=== PATIENT | male | born 1945 | race Caucasian/White ===

== ENCOUNTER 2019-01-17 13:00 | Inpatient (IN) | payer MEDICARE ==
--- NOTE | 2019-01-17 13:12 | ED ---
General Adult HPI - General Stated complaint: Chest Pain Time Seen by Provider: 01/17/19 13:00 Source: RN notes reviewed - History of Present Illness Initial comments: This is a 73-year-old male who was transferred to us from [facility]. According to the ER doctor at the other hospital the patient was having chest pain for a day him to their facility was concerned about some changes in precordial leads V1 and V2. Also the troponin was 0.026 according to the ER doc. According here Dr. Pretty spoke with Dr. Rodriguez and he was to be sent to our emergency department. I went and saw the patient he stated he had chest pain 1 day and he denies any difficulty breathing or diaphoretic episodes. Patient states he still has a little bit of chest pain. Patient denies any nausea vomiting. Patient denies any lightheadedness or dizziness. Patient denies headache patient denies numbness weakness. After I interviewed the patient I received a phone call almost immediately at the Cra Officer wanted the patient upstairs to cardiac catheterization. This point time we brought the patient upstairs. Review of Systems ROS Statement: Those systems with pertinent positive or pertinent negative responses have been documented in the HPI. ROS Other: All systems not noted in ROS Statement are negative. General Exam - General Exam Comments Initial Comments: GENERAL: Patient is well-developed and well-nourished. Patient is nontoxic and well- hydrated and is in no acute distress. ENT: Neck is soft and supple. No significant lymphadenopathy is noted. Erythematous. Moist mucous membranes. Neck has full range of motion without eliciting any pain. There is no thyroid enlargement and no masses were felt. EYES: The sclera were anicteric and conjunctiva were pink and moist. Extraocular movements were intact and pupils were equal round and reactive to light. Eyelids were unremarkable. PULMONARY: Unlabored respirations. Good breath sounds bilaterally. No audible rales rhonchi or wheezing was noted. CARDIOVASCULAR: There is a regular rate and rhythm without any murmurs gallops or rubs. ABDOMEN: Soft and nontender with normal bowel sounds. No palpable organomegaly was noted. There is no palpable pulsatile mass. SKIN: Skin is clear with no lesions or rashes and otherwise unremarkable. NEUROLOGIC: Patient is alert and oriented x3. Cranial nerves II through XII are grossly intact. Motor and sensory are also intact. Normal speech, volume and content. Symmetrical smile. MUSCULOSKELETAL: Normal extremities with adequate strength and full range of motion. LYMPHATICS: No significant lymphadenopathy is noted PSYCHIATRIC: Normal psychiatric evaluation. Medical Decision Making - Medical Decision Making EKG shows a normal sinus rhythm at 93 bpm IN interval 264 QRS is 98 QT interval 340 QTC is 432. Patient's EKG shows no ST segment elevation or depression. Patient was almost immediately transferred to the catheterization lab after I saw the patient. Disposition Clinical Impression: Chest pain Disposition: ADMITTED IP TO THIS HOSP Referrals: Juan Alonso MD [Primary Care Provider] - 1-2 days Time of Disposition: 13:12
[2019-01-17] MEDS ORDERED: IV FLUID CONTINUATION 1,000 ML IV ONE (13:27)
[2019-01-17] MEDS ORDERED: MIDAZOLAM (PF) 2 MG/2 ML VIAL IV ONE (13:45)
[2019-01-17] MEDS ORDERED: LIDOCAINE 1% INJ 10MG/ML (20 ML MDV) SQ ONE (13:48)
[2019-01-17] MEDS ORDERED: VERAPAMIL SYRINGE (5 MG/10 ML) INTRAARTER ONE ×2 (13:48→14:01)
[2019-01-17] MEDS ORDERED: IOPAMIDOL-370 125ML BTL INJ ONE (14:01)
[2019-01-17] MEDS ORDERED: RX INFO: IV CONTRAST WAS GIVEN 1 EACH MISC MISCELLANE PRN (14:16)
--- NOTE | 2019-01-17 14:25 | P.CRDCN ---
History of Present Illness Consult date: 01/17/19 Chief complaint: Chest discomfort History of present illness: This is a 73-year-old gentleman with no significant past medical history but prior history of smoking who [facility] complaining of chest discomfort for the last several weeks and presyncope earlier today. He felt dizzy and lightheaded and about to lose his consciousness. The initial EKG at [facility] revealed sinus rhythm with ST segment elevation in the anteroseptal leads. Because of that, and because of his symptoms, acute anterior ST patient myocardial infarction was suspected and the patient was brought to the emergency room at [facility] and then emergently to the cardiac pit laborer. He underwent a heart catheterization which revealed normal coronaries with normal left ventricular end-diastolic pressure. Currently the patient is chest pain-free. He denies any shortness of breath. Denies any feeling of heart racing or fluttering. The patient will be admitted to the general medical floor. An echocardiogram will be ordered. On physical examination he does have a systolic murmur at the right upper sternal border. Past Medical History Past Medical History: Chest Pain / Angina History of Any Multi-Drug Resistant Organisms: None Reported Past Surgical History: Unable to Obtain Past Psychological History: No Psychological Hx Reported Smoking Status: Former smoker Past Alcohol Use History: None Reported Past Drug Use History: None Reported Medications and Allergies Allergies Allergy/AdvReac Type Severity Reaction Status Date / Time No Known Allergies Allergy Verified 01/17/19 13:37 Physical Exam Vitals: Vital Signs Temp Pulse Resp BP Pulse Ox 01/17/19 13:07 98.5 F 95 16 126/79 98 Intake and Output 01/16/19 01/17/19 01/17/19 22:59 06:59 14:59 Intake Total 50 Balance 50 Intake: IV 50 Other: Weight 99.337 kg - Constitutional General appearance: no acute distress - Respiratory Respiratory: bilateral: rales - Cardiovascular Rhythm: regular Heart sounds: normal: S1, S2 Abnormal Heart Sounds: systolic murmur Results Current Medications Generic Name Dose Route Start Last Admin Trade Name Freq PRN Reason Stop Dose Admin Sodium Chloride 1,000 mls @ 75 mls/hr 01/17/19 14:30 Saline 0.9% IV 01/17/19 19:31 .[id number] MAHENDRA Miscellaneous Information 1 each 01/17/19 14:16 Rx Info: Iv Contrast Was Given MISCELLANE 01/19/19 14:16 DAILY PRN Per Protocol Intake and Output 01/16/19 01/17/19 01/17/19 22:59 06:59 14:59 Intake Total 50 Balance 50 Intake: IV 50 Other: Weight 99.337 kg Patient Weight 01/18/19 06:59 Weight 99.337 kg Assessment and Plan Assessment: Assessment #1 chest discomfort #2 presyncope #3 abnormal EKG concerning for acute anterior ST elevation MS Plan #1 the patient underwent a heart catheterization revealed normal coronaries #2 he will be admitted today to general medical floor #3 we will get an echocardiogram was Doppler #4 follow-up with the patient Thank you for allowing us participate in his care
[2019-01-17] MEDS ORDERED: SODIUM CHLORIDE 0.9% 1,000 ML IV SCH (14:30)
[2019-01-17 14:41] LABS: Glucose,Whole Blood 122 mg/dL (75-99)
--- NOTE | 2019-01-17 15:27 | CT ---
EXAMINATION TYPE: CT brain wo con DATE OF EXAM: 01/17/2019 COMPARISON: None HISTORY: inability to swallow and garbled speech CT DLP: 1217.[address] of the brain was performed. The ventricles, basal cisterns and sulci overlying the cerebral convexities demonstrate mild enlargem ent. There is no evidence for intracranial hemorrhage or sulcal effacement. There is decreased attenuation about the periventricular white matter and deep white matter of both c erebral hemispheres, compatible with chronic small vessel ischemia. Differential diagnosis does inclu de demyelination. No mass effects are seen.No midline shift. Osseous calvarium is intact. If symptoms persist consider MRI. IMPRESSION: 1. Age related atrophic and chronic small vessel ischemic change without acute intracranial process s een at this time.
--- NOTE | 2019-01-17 16:41 | P.CNNES ---
History of Present Illness Consult date: 01/17/19 Requesting physician: Sheila Norwood Reason for Consult: Dysphagia Chief complaint: Difficulty swallowing History of Present Illness: Patient is a 73-year-old male who initially presented to [facility] with chest pain. Patient was transferred to [facility] for cardiac catheterization, which was performed today, which apparently is normal. This morning patient also started having some dizziness described as lightheadedness, (no vertigo), dysphagia, speech difficulty, inability to swallow. This came on all of a sudden. Yesterday he went to a restaurant was able to eat without any issues. Patient denies any diplopia, focal numbness tingling, ataxia. Patient's speech is very gurgly, with a lot of secretions, inability to swallow. Patient underwent CT of the brain, which is normal. Patient's blood glucose is 122. Review of Systems Denies diplopia, ptosis. He states he has been having cough, and secretions, not able to bring it up. Not able to swallow. Had some chest pain. All other review of systems unremarkable. Constitutional: Reports as per HPI Past Medical History Past Medical History: Chest Pain / Angina History of Any Multi-Drug Resistant Organisms: None Reported Past Surgical History: Unable to Obtain Past Psychological History: No Psychological Hx Reported Smoking Status: Former smoker Past Alcohol Use History: None Reported Past Drug Use History: None Reported Medications and Allergies Home Medications Medication Instructions Recorded Confirmed Type Cholecalciferol (Vitamin D3) 2,000 unit PO DAILY 01/17/19 01/17/19 History [Vitamin D3] Allergies Allergy/AdvReac Type Severity Reaction Status Date / Time bee venom protein (honey bee) Allergy Swelling Verified 01/17/19 15:40 Physical Examination - Vital Signs Vital Signs: Vital Signs Temp Pulse Pulse Pulse Resp BP BP 01/17/19 15:45 108 H 20 165/99 01/17/19 15:30 98 20 153/81 01/17/19 15:15 99 16 144/77 01/17/19 15:00 98.6 F 97 20 134/62 01/17/19 13:07 98.5 F 95 16 126/79 Pulse Ox 01/17/19 15:45 98 01/17/19 15:30 98 01/17/19 15:15 95 01/17/19 15:00 95 01/17/19 13:07 98 Intake and Output 01/17/19 01/17/19 01/17/19 06:59 14:59 22:59 Intake Total 50 Balance 50 Intake: IV 50 Other: Weight 99.337 kg On examination patient is an elderly male, who is laying in the bed, in mild to moderate respiratory distress. Patient has a lot of secretions, gurgly voice, not able to swallow his own saliva. Patient is trying to spit his saliva and oral secretions into the kidney tray. There is no bruit or murmur. On cranial nerve examination his pupils are round and reactive to light. Visual cesar are full on confrontation. Extraocular muscles reveal some restriction of gaze to the right and left. No diplopia however. 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 He cannot wrinkle forehead on either side. He has bilateral ptosis. Tongue is very weak for [id number] movement. Palatal elevation was symmetric but appears decreased. On muscle strength testing, there is no pronator drift and the strength is completely normal in the arms and legs distally and proximally. Reflexes are diminished and plantars are downgoing. Sensory touch is equal. No ataxia for [id number] testing on either sides. Gait deferred. Results - Laboratory Findings Abnormal Lab Findings: Abnormal Labs 01/17/19 14:39 POC Glucose (mg/dL) 122 H Assessment and Plan Assessment: * 73-year-old male came with chest pain with negative cardiac catheterization has developed acute onset of dysphagia, dysarthria, dizziness (lightheadedness) since this morning. Examination reveals bifacial weakness, lingual and pharyngeal weakness. Rule out acute bulbar myasthenia/myasthenic crisis. Examination is relatively nonfocal, therefore CVA appears less likely but still a possibility. Plan: Patient is having respiratory distress. He is high risk of choking, and developing respiratory arrest, therefore would suggest transfer to ICU for close monitoring. We will check an MRI of the brain to rule out stroke although appears unlikely. We will check acetylcholine receptor antibodies. We will start him on Mestinon 30 mg 3 times a day. Patient will need NGT placement for Mestinon. We will start him on IVIG 0.4 g/kg per day for 5 days for possible myasthenia crisis. Discussed with Dr Norwood in detail.
--- NOTE | 2019-01-17 16:47 | P.HPIM ---
History of Present Illness H&P Date: 01/17/19 73 years old healthy male with no significant past medical history patient of Dr. Gonzalez comes in with nausea, chest pain and vomiting. Patient was out in the down paying his bills when he had a near syncope event he was brought to the ER on evaluation EKG suggested indeed revealed anterior lateral ST changes suggestive of MT. Cardiology was consulted who took the patient for cardiac cath. Cardiac catheterization was negative for any coronary artery disease but patient started having difficulty swallowing post extubation and was found choking on his secretions despite repeated suctioning. According to the history provided by the patient it appears patient was having some heaving since morning and was having some substernal chest pain for the past few days. On evaluation in the patient's room it appears patient has facial paralysis and difficulty speaking with dysphagia. This is a new onset of symptoms with no previous episodes. Patient also some diplopia and facial droop bilaterally. Patient did get Xylocaine IV during the procedure which might have precipitated the event. Acetal choline receptor antibodies ordered. MRI ordered stat. Patient initiated on IVIG for 5 days and pyridostigmine treatment started low dose of 30 mg 3 times a day Review of Systems Constitutional: Denies chills, Denies fever, endorses lethargy. Denies poor appetite, Denies weight loss Eyes: denies decreased vision, denies diplopia, denies discharge, denies pain Ears: deny: decreased hearing Ears, nose, mouth and throat: Denies dental pain, Denies headache, Denies nasal discharge, Denies nose pain Cardiovascular: Denies chest pain, Denies decreased exercise tolerance, Denies edema, Denies high blood pressure, Denies irregular heart beat, Denies palpitations, Denies paroxysmal nocturnal dyspnea, Denies rapid heart beat, Denies shortness of breath Respiratory: Denies congestion, Denies cough, Denies cough with sputum, Denies dyspnea, Denies home oxygen, Denies wheezing Gastrointestinal: Denies abdominal pain, Denies change in bowel habits, Denies coffee ground emesis, Denies early satiety, Denies excessive gas, Denies heartburn, Denies hematemesis, Denies hematochezia, Denies loss of appetite, Denies nausea, Denies vomiting Genitourinary: Denies dysuria, Denies flank pain, Denies kidney stones, Denies menorrhagia, Denies urgency, Denies urinary frequency Musculoskeletal: Denies gait dysfunction, Denies limitation of motion, Denies morning stiffness, Denies muscle cramps Integumentary: Denies rash, Denies wounds, Denies brittle nails, Denies change in hair/nails, Denies darkening of skin Neurological: Denies balance difficulties, endorses change in speech, endorses double vision, Denies gait dysfunction, Denies loss of vision, Denies motor disturbance, Denies numbness, Denies paralysis, Denies paresthesias, Denies s eizures endorses dysarthria or dysphagia Psychiatric: Denies anxiety, Denies depression Endocrine: Denies excessive sweating, Denies excessive thirst, Denies high blood sugars, Denies palpitations Hematologic/Lymphatic: Denies easy bruising, Denies lymphadenopathy Past Medical History Past Medical History: Chest Pain / Angina Additional Past Medical History / Comment(s): Arthritis L hip and spine, gastric ulcer, constipation, head injury/concussion as child which left him LOVELOCK in L ear. History of Any Multi-Drug Resistant Organisms: None Reported Past Surgical History: Unable to Obtain Additional Past Surgical History / Comment(s): R shoulder surgery for spurs, exploratoty/stomach surgery gastric ulcer Additional Past Anesthesia/Blood Transfusion Reaction / Comment(s): Pt recieved blood in past d/t stomach ulcer/bleed without reaction. Past Psychological History: No Psychological Hx Reported Smoking Status: Former smoker Past Alcohol Use History: None Reported Past Drug Use History: None Reported - Past Family History Father Family Medical History: Myocardial Infarction (MT) Additional Family Medical History / Comment(s): Father of a MT at the age of 72 yrs. Mother Family Medical History: No Reported History Additional Family Medical History / Comment(s): Mother was healthy. Medications and Allergies Home Medications Medication Instructions Recorded Confirmed Type Cholecalciferol (Vitamin D3) 2,000 unit PO DAILY 01/17/19 01/17/19 History [Vitamin D3] Allergies Allergy/AdvReac Type Severity Reaction Status Date / Time bee venom protein (honey bee) Allergy Swelling Verified 01/17/19 15:40 Physical Exam Vitals: Vital Signs Temp Pulse Pulse Pulse Resp BP BP 01/17/19 15:45 108 H 20 165/99 01/17/19 15:30 98 20 153/81 01/17/19 15:15 99 16 144/77 01/17/19 15:00 98.6 F 97 20 134/62 01/17/19 13:07 98.5 F 95 16 126/79 Pulse Ox 01/17/19 15:45 98 01/17/19 15:30 98 01/17/19 15:15 95 01/17/19 15:00 95 01/17/19 13:07 98 Intake and Output 01/17/19 01/17/19 01/17/19 06:59 14:59 22:59 Intake Total 50 Balance 50 Intake: IV 50 Other: Weight 99.337 kg - Constitutional General appearance: cooperative, no acute distress, obese - EENT Eyes: anicteric sclerae, PERRLA, normal appearance difficulty keeping her eyes open with some ptosis bilaterally, and flattening of wrinkles on the left side of the face ENT: hearing grossly normal - Neck Neck: no lymphadenopathy, normal ROM, no other, no rigidity, no stridor, no thyromegaly - Respiratory Respiratory: bilateral: CTA, negative: diminished, dullness, rales, rhonchi - Cardiovascular Rhythm: regular Heart sounds: normal: S1, S2 Abnormal Heart Sounds: no systolic murmur, no diastolic murmur, no rub, no S3 Gallop, no S4 Gallop, no click, no other - Gastrointestinal General gastrointestinal: normal bowel sounds, soft - Integumentary Integumentary: no rash - Neurologic Neurologic: Appears to have bilateral facial nerve pallor C with difficulty keeping the eyes open, uvula appears to be in the center with no time deviation sensation intact bilaterally no motor deficit seen, balance is intact - Musculoskeletal Musculoskeletal: gait normal, strength equal bilaterally - Psychiatric Psychiatric: A&O x's 3, appropriate affect Results Labs: Abnormal Lab Results - Last 24 Hours (Table) 01/17/19 Range/Units 14:39 POC Glucose (mg/dL) 122 H (75-99) mg/dL Thrombosis Risk Factor Assmnt - DVT/VTE Prophylaxis DVT/VTE Prophylaxis: Mechanical Prophylaxis ordered - Choose All That Apply Any of the Below Risk Factors Present?: Yes Each Factor Represents 1 point: Obesity (BMI >25) Other Risk Factors: Yes Each Risk Factor Represents 2 Points: Age 61-74 years Other congenital or acquired thrombophilia - If yes, enter type in comment: No Each Risk Factor Represents 5 Points: Stroke (< 1 month) Thrombosis Risk Factor Assessment Total Risk Factor Score: 8 Thrombosis Risk Factor Assessment Level: High Risk Assessment and Plan Plan: #1 acute dysarthria with dysphagia with doses likely secondary to 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 Neurology consult placed. CT head is negative for any acute abnormality. MRI ordered to rule out any cerebellar stroke bowel though appears unlikely with patient's presentation. Since patient is not able to keep anything down orally keep patient nothing by mouth. Place NG tube. Pyridostigmine initiated at 30 mg 3 times a day. ACHR receptor antibodies ordered. IVIG initiated for 5 days. Likely exacerbated by Xylocaine given during the cardiac cath. Avoid any sedating medication, antibiotic , beta blockers tract drug that can worse patient's symptoms #2 acute chest pain EKG in suggestive of ST or T-wave changes. Cardiac cath negative for any coronary artery disease. #3 nausea/vomiting likely secondary to above. Zofran 4 mg IV every 6 #4 DVT prophylaxis with ambulation #6 GI prophylaxis with Pepcid 20 mg IV daily #7 disposition patient should be changed to inpatient status due to the new presentation of myasthenia that was not initially the reason of admission. May need 1-2 inpatient nights
[2019-01-17 17:28] LABS: Glucose,Whole Blood 105 mg/dL (75-99)
[2019-01-17] MEDS ORDERED: IMMUNE GLOBULIN (GAMMAGARD) 30 GM in EMPTY BAG 1 BAG IV ONE (18:00)
[2019-01-17] MEDS ORDERED: IMMUNE GLOBULIN (GAMMAGARD) 1 GM/10 ML VIAL IV SCH (18:00)
[2019-01-17 18:06] LABS: Basophils % (A) 0 %; Eosinophils # (A) 0.1 k/uL (0-0.7); Eosinophils % (A) 1 %; HCT 40.9 % (39.0-53.0); HGB 13.6 gm/dL (13.0-17.5); Lymphocytes # (A) 1.2 k/uL (1.0-4.8); Lymphocytes % (A) 8 %; MCH 34.5 pg (25.0-35.0); MCHC 33.2 g/dL (31.0-37.0); Macrocytosis Slight; Monocytes # (A) 1.1 k/uL (0-1.0); Monocytes % (A) 8 %; Neutrophils # (A) 12.2 k/uL (1.3-7.7); Neutrophils % (A) 82 %; Platelet Count 338 k/uL (150-450); RBC 3.93 m/uL (4.30-5.90); RDW 12.9 % (11.5-15.5); WBC 14.8 k/uL (3.8-10.6)
[2019-01-17 18:10] LABS: ALT 40 U/L (21-72); AST 28 U/L (17-59); Albumin 3.7 g/dL (3.5-5.0); Alkaline Phosphatase 74 U/L (38-126); Anion Gap 8 mmol/L; Blood Urea Nitrogen 14 mg/dL (9-20); Calcium 9.6 mg/dL (8.4-10.2); Carbon Dioxide 30 mmol/L (22-30); Chloride 101 mmol/L (98-107); Glucose 110 mg/dL (74-99); Potassium 4.2 mmol/L (3.5-5.1); Sodium 139 mmol/L (137-145); Total Bilirubin 0.6 mg/dL (0.2-1.3)
[2019-01-17] MEDS: PYRIDOSTIGMINE 60 MG TAB PO SCH ×2 (18:20→22:52)
--- NOTE | 2019-01-17 18:26 | XR ---
EXAMINATION TYPE: XR chest 1V DATE OF EXAM: 01/17/2019 COMPARISON: NONE HISTORY: Check tube placement TECHNIQUE: Single frontal view of the chest is obtained. FINDINGS: There is a nasogastric tube that is looped on itself. There is elevated left diaphragm mor e large hiatal hernia. It is not clear if the nasogastric tube is within a hiatal hernia. There is at electasis at the left lung base. There is no heart failure. There are chest leads. IMPRESSION: Limited exam. Findings likely relate to atelectasis in the left lower lobe with markedly elevated left diaphragm. Hiatal hernia not excluded. Nasogastric tube looped on itself apparently in the gastric fundus.
--- NOTE | 2019-01-17 18:55 | CC ---
CARDIAC CATHETERIZATION REPORT DATE OF SERVICE: January 17, 2019 PERFORMING PHYSICIAN: Vel Lawrence M.D., electrical wirer. PROCEDURE PERFORMED: 1. Selective right and left coronary angiogram. 2. Left heart catheterization. INDICATION: This is a pleasant 73-year-old gentleman with a past medical history significant for hypertension and dyslipidemia presented initially today [facility] with chest discomfort and presyncope. Initial EKG showed possible anterior ST-elevation myocardial infarction and because of that, the patient subsequently was transferred to [facility] for emergent heart catheterization. APPROACH: Right radial artery. COMPLICATION: None. LEVEL OF SEDATION: Moderate with sedation length of 16 minutes. APPROACH: Right radial artery. None. SEDATION: Level of sedation: Moderate with sedation length of 16 minutes. PROCEDURE DESCRIPTION: After obtaining an informed consent, the patient was brought to the cardiac greenskeeper laborer. The right radial artery was cannulated using micropuncture technique, the micropuncture wire passed easily. Then I placed a 6-[place] sheath in the right radial artery. I did after that I gave the patient 2 mg of verapamil IA. Subsequently, I did selective right and left coronary angiogram using JR4 and JL3.5 catheters. Left heart catheterization was performed using the JR4 catheter which flipped into the LV, then I did pullback across aortic valve. The procedure was completed without any complication. SELECTIVE CORONARY ANGIOGRAM: RIGHT CORONARY ARTERY: A large caliber vessel and it is a dominant vessel. It is angiographically normal it bifurcates into PDA and PLV branches both appeared to be angiographically normal. LEFT MAIN: The left main is angiographically normal it bifurcates into the left circumflex and left anterior descending artery. CIRCUMFLEX CORONARY ARTERY: The left circumflex is a large caliber vessel and it is a nondominant vessel. The left circumflex is angiographically normal and gives rise into 2 obtuse marginal branches both appear to be angiographically normal. LEFT ANTERIOR DESCENDING CORONARY ARTERY: The proximal LAD appeared to be normal and gives rise into the first diagonal branch which seems to be normal. The mid LAD is normal and gives rise into a second diagonal branch which seems to be normal and the LAD distally appeared to be normal. HEMODYNAMICS: The left ventricular end-diastolic pressure was about 8 mmHg without significant gradient across the aortic valve. CONCLUSION: 1. Normal coronary angiogram. 2. Normal left ventricular end-diastolic pressure. MMODL / IJN: [id number] /
[2019-01-17] MEDS ORDERED: NALOXONE 0.4 MG/ML 1 ML VIAL IV PRN (19:53)
[2019-01-18 00:11] LABS: Glucose,Whole Blood 111 mg/dL (75-99)
[2019-01-18 05:03] LABS: Basophils % (A) 0 %; Eosinophils # (A) 0.2 k/uL (0-0.7); Eosinophils % (A) 1 %; HCT 40.3 % (39.0-53.0); HGB 13.1 gm/dL (13.0-17.5); Lymphocytes # (A) 0.8 k/uL (1.0-4.8); Lymphocytes % (A) 5 %; MCH 33.6 pg (25.0-35.0); MCHC 32.5 g/dL (31.0-37.0); MCV 103.1 fL (80.0-100.0); Macrocytosis Slight; Mean Platelet Volume 7.8; Monocytes # (A) 0.5 k/uL (0-1.0); Monocytes % (A) 4 %; Neutrophils # (A) 12.2 k/uL (1.3-7.7); Neutrophils % (A) 89 %; Platelet Count 314 k/uL (150-450); RBC 3.91 m/uL (4.30-5.90); RDW 13.3 % (11.5-15.5); WBC 13.8 k/uL (3.8-10.6)
[2019-01-18 05:14] LABS: Anion Gap 6 mmol/L; Blood Urea Nitrogen 16 mg/dL (9-20); Calcium 8.6 mg/dL (8.4-10.2); Carbon Dioxide 29 mmol/L (22-30); Chloride 104 mmol/L (98-107); Glucose 94 mg/dL (74-99); Magnesium 1.6 mg/dL (1.6-2.3); Phosphorus 3.2 mg/dL (2.5-4.5); Potassium 3.9 mmol/L (3.5-5.1); Sodium 139 mmol/L (137-145)
[2019-01-18 06:01] LABS: Glucose,Whole Blood 95 mg/dL (75-99)
[2019-01-18] MEDS ORDERED: Magnesium Replacement Protocol 1 EACH MISC MISCELLANE PRN (07:37)
--- NOTE | 2019-01-18 07:37 | P.PN ---
Subjective Progress Note Date: 01/18/19 Principal diagnosis: Generalized weakness This is a 73-year-old gentleman who was transferred from [facility] to [facility] for possible acute anterior MO. He underwent an emergent heart catheterization and was found to have normal coronaries. Subsequently he was seen by the internal medicine team and was diagnosed with mystania gravis. He was started on IVIG. On follow-up with her today, January 182018, he is asymptomatic from the cardiac standpoint overview. He is still having problem in swallowing his saliva and secretions. An echocardiogram was ordered and we'll follow-up on that. Hemodynamically he continues to be stable. Objective - Vital Signs Vital signs: Vital Signs Temp 98.4 F 01/18/19 00:00 Pulse 99 01/18/19 06:00 Resp 20 01/18/19 06:00 BP 141/79 01/18/19 06:00 Pulse Ox 95 01/18/19 06:00 Intake & Output 01/17/19 01/18/19 01/18/19 18:59 06:59 18:59 Intake Total 50 1125 Output Total 200 2225 Balance -150 -1100 Weight 99.337 kg Intake: IV 50 1125 Immune Globulin ( 300 Gammagard) 30 gm In Empty Bag 1 bag @ Per Protocol IV .Q0M ONE Rx#: [id number] Sodium Chloride 0.9% 1, 825 000 ml @ 75 mls/hr IV . [id number] [facility] Rx#:[id number] Output: Gastric Drainage 1800 Urine 200 425 Other: Voiding Method Urinal - Constitutional General appearance: Present: no acute distress - Respiratory Respiratory: bilateral: CTA - Cardiovascular Rhythm: regular - Labs CBC & Chem 7: 01/18/19 04:46 01/18/19 04:46 Labs: Abnormal Lab Results - Last 24 Hours (Table) 01/17/19 01/17/19 01/17/19 Range/Units 14:39 17:26 17:26 WBC 14.8 H (3.8-10.6) k/uL RBC 3.93 L (4.30-5.90) m/uL MCV 104.0 H (80.0-100.0) fL Neutrophils # 12.2 H (1.3-7.7) k/uL Lymphocytes # (1.0-4.8) k/uL Monocytes # 1.1 H (0-1.0) k/uL Glucose 110 H (74-99) mg/dL POC Glucose (mg/dL) 122 H (75-99) mg/dL 01/17/19 01/18/19 01/18/19 Range/Units 17:26 00:10 04:46 WBC 13.8 H (3.8-10.6) k/uL RBC 3.91 L (4.30-5.90) m/uL MCV 103.1 H (80.0-100.0) fL Neutrophils # 12.2 H (1.3-7.7) k/uL Lymphocytes # 0.8 L (1.0-4.8) k/uL Monocytes # (0-1.0) k/uL Glucose (74-99) mg/dL POC Glucose (mg/dL) 105 H 111 H (75-99) mg/dL Assessment and Plan Assessment: Assessment #1 chest discomfort #2 presyncope #3 abnormal EKG concerning for acute anterior ST elevation MO Plan #1 the patient underwent a heart catheterization revealed normal coronaries #2 follow-up on the echocardiogram Thank you for allowing us participate in his care
[2019-01-18] MEDS ORDERED: Potassium Replacement Protocol 1 EACH MISC MISCELLANE PRN (07:38)
[2019-01-18] MEDS: MAGNESIUM SULFATE-D5W PMX 1 GM in DEXTROSE/WATER 1 100ML.BAG IVPB SCH ×2 (07:48→09:29)
--- NOTE | 2019-01-18 07:49 | XR ---
EXAMINATION TYPE: XR chest 1V DATE OF EXAM: 01/18/2019 CLINICAL HISTORY: Difficulty breathing and cough progress study. TECHNIQUE: Single AP portable upright view of the chest is obtained. COMPARISON: Chest x-ray from one day earlier FINDINGS: Nasogastric tube is redemonstrated and stable. Surgical clips near gastroesophageal juncti on are again seen. There is persistent left basilar opacity suggesting hiatal hernia with associated left basilar atelec tasis and/or infiltrate. Right lung remains clear. Cardiac silhouette size is stable. Upper limits of normal. A sporadic and ectatic aorta. Osseous structures are intact. Overlying EKG leads are redemon strated. IMPRESSION: Overall stable findings, large hiatal hernia or elevated left hemidiaphragm with adjace nt left basilar atelectasis and/or infiltrate.
[2019-01-18] MEDS: PANTOPRAZOLE 40 MG/10 ML VIAL IV SCH (07:50)
[2019-01-18] MEDS: PYRIDOSTIGMINE 60 MG TAB PO SCH ×3 (07:55→21:35)
[2019-01-18] MEDS ORDERED: POTASSIUM BICARBONATE/CIT AC 20 MEQ TABLET.EFF NG-TUBE SCH (08:30)
[2019-01-18] MEDS ORDERED: RX INFO: IV CONTRAST WAS GIVEN 1 EACH MISC MISCELLANE PRN (09:24)
[2019-01-18] MEDS: SODIUM CHLORIDE 0.9% 1,000 ML IV SCH ×2 (09:31→19:00)
--- NOTE | 2019-01-18 09:48 | ECHOF ---
Referral Reason:cp MEASUREMENTS -------- HEIGHT: 182.9 cm WEIGHT: 99.3 kg BP: 126/79 RVIDd: 3.2 cm (< 3.3) IVSd: 1.2 cm (0.6 - 1.1) LVIDd: 4.4 cm (3.9 - 5.3) LVPWd: 1.1 cm (0.6 - 1.1) IVSs: 1.6 cm LVIDs: 2.9 cm LVPWs: 1.6 cm LA Diam: 3.3 cm (2.7 - 3.8) LAESV Index (A-L): 28.02 ml/m Ao Diam: 3.4 cm (2.0 - 3.7) MV EXCURSION: 23.601 mm (> 18.000) MV EF SLOPE: 124 mm/s (70 - 150) EPSS: 1.0 cm MV E Andrade: 0.96 m/s MV DecT: 252 ms MV A Andrade: 1.48 m/s MV E/A Ratio: 0.65 FINDINGS -------- Sinus rhythm. This was a technically adequate study. The left ventricular size is normal. There is borderline concentric left ventricular hypertrophy. Overall left ventricular systolic function is normal with, an EF between 60 - 65 %. The right ventricle is normal in size. Normal LA size by volume 22+/-6 ml/m2. The right atrium is normal in size. The aortic valve is trileaflet and appears structurally normal. The mitral valve is normal. The tricuspid valve appears structurally normal. There is no pulmonic regurgitation present. The aortic root size is normal. IVC Not well visulized. There is no pericardial effusion. CONCLUSIONS -------- 1. Sinus rhythm. 2. This was a technically adequate study. 3. The left ventricular size is normal. 4. There is borderline concentric left ventricular hypertrophy. 5. Overall left ventricular systolic function is normal with, an EF between 60 - 65 %. 6. The right ventricle is normal in size. 7. Normal LA size by volume 22+/-6 ml/m2. 8. The right atrium is normal in size. 9. The aortic valve is trileaflet and appears structurally normal. 10. The mitral valve is normal. 11. The tricuspid valve appears structurally normal. 12. There is no pulmonic regurgitation present. 13. The aortic root size is normal. 14. IVC Not well visulized. 15. There is no pericardial effusion. WIRE LOOP MACHINE OPERATOR: Alexandra Mccauley RDCS
--- NOTE | 2019-01-18 10:34 | P.PN ---
Subjective Progress Note Date: 01/18/19 Patient was seen for a follow-up. Since last seen yesterday, patient is now transferred to ICU. Patient has an NG tube placed. He is less gurgly but still has a lot of secretions. Patient has received Mestinon 30 mg 3 times a day. He also has received 1 dose of IVIG, tolerated it well. According to the nursing report, patient is slightly better. Slightly able to better bring up phlegm. Patient denies diplopia. Still very weak in fascial, lingual and pharyngeal muscles. Patient's blood test shows WBC 13.8 hemoglobin 13.1 with elevated MCV 103.1. Platelets are normal. 14. Chem-7 normal. Liver functions, TSH normal 1.43. CARLOS negative. Chest x-ray from this morning showed overall stable findings, large hiatal hernia or elevated left hemidiaphragm with adjacent left basilar atelectasis and/or infiltrate. Objective - Vital Signs Vital signs: Vital Signs Temp 98.4 F 01/18/19 08:00 Pulse 93 01/18/19 09:00 Resp 18 01/18/19 09:00 BP 148/74 01/18/19 09:00 Pulse Ox 95 01/18/19 09:00 Intake & Output 01/17/19 01/18/19 01/18/19 18:59 06:59 18:59 Intake Total 50 1125 425 Output Total 200 2225 75 Balance -150 -1100 350 Weight 99.337 kg 85.7 kg Intake: IV 50 1125 425 Immune Globulin ( 300 Gammagard) 30 gm In Empty Bag 1 bag @ Per Protocol IV .Q0M ONE Rx#: [id number] Magnesium Sulfate-D5w Pmx 200 1 gm In Dextrose/Water 1 100ml.bag @ 100 mls/hr IVPB Q1H [facility] Rx#: [id number] Sodium Chloride 0.9% 1, 825 225 000 ml @ 75 mls/hr IV . [id number] [facility] Rx#:[id number] Output: Gastric Drainage 1800 Urine 200 425 75 Other: Voiding Method Urinal Urinal - Exam On examination patient is an elderly male, appears to be in moderate respiratory distress. Cannot bring up secretions. Cough slightly better than yesterday. He continues to have significant dysarthria due to weak facial muscles. Patient has persistent weakness of bilateral facial muscles, upper and lower part, very weak tongue muscles for [id number] movement, puffing up the cheeks, wrinkling of the forehead, eye closure. Patient's strength is normal in the arms and legs. Reflexes are symmetric and plantars downgoing. - Labs CBC & Chem 7: 01/18/19 04:46 01/18/19 04:46 Labs: Abnormal Lab Results - Last 24 Hours (Table) 01/17/19 01/17/19 01/17/19 Range/Units 14:39 17:26 17:26 WBC 14.8 H (3.8-10.6) k/uL RBC 3.93 L (4.30-5.90) m/uL MCV 104.0 H (80.0-100.0) fL Neutrophils # 12.2 H (1.3-7.7) k/uL Lymphocytes # (1.0-4.8) k/uL Monocytes # 1.1 H (0-1.0) k/uL Glucose 110 H (74-99) mg/dL POC Glucose (mg/dL) 122 H (75-99) mg/dL 01/17/19 01/18/19 01/18/19 Range/Units 17:26 00:10 04:46 WBC 13.8 H (3.8-10.6) k/uL RBC 3.91 L (4.30-5.90) m/uL MCV 103.1 H (80.0-100.0) fL Neutrophils # 12.2 H (1.3-7.7) k/uL Lymphocytes # 0.8 L (1.0-4.8) k/uL Monocytes # (0-1.0) k/uL Glucose (74-99) mg/dL POC Glucose (mg/dL) 105 H 111 H (75-99) mg/dL Assessment and Plan Assessment: * 73-year-old male came with chest pain with negative cardiac catheterization has developed acute onset of dysphagia, dysarthria, dizziness (lightheadedness) since cardiac catheterization. Examination reveals bifacial weakness, lingual and pharyngeal weakness. Rule out acute bulbar myasthenia/myasthenic crisis. Examination is relatively nonfocal besides bilateral fascial in lingual weakness, therefore CVA appears less likely but still a possibility, especially that the symptoms occurred right after a procedure (cardiac catheterization) which carries a perioperative stroke risk. Plan: * MRI of the brain pending to rule out stroke. * Start ASA 325 mg daily. * Patient is slightly better. He has received Mestinon, and one dose of IVIG. * Await acetylcholine receptor antibodies. * Hold IVIG, until MRI has ruled out an acute stroke.
--- NOTE | 2019-01-18 10:41 | XR ---
EXAMINATION TYPE: XR KUB portable DATE OF EXAM: 01/18/2019 10:21 AM CLINICAL HISTORY: Vomiting. TECHNIQUE: 3 portable supine KUB images of the abdomen are obtained. COMPARISON: Chest x-ray earlier today.. FINDINGS: There is nasogastric tube projecting below diaphragm. Surgical clips epigastric region pres umed above the expected level of normal diaphragm are redemonstrated. There is extension of gas fille d colon superiorly favoring elevated left hemidiaphragm, diaphragmatic hernia felt less likely. There is some scattered gas in small and large bowel loops. Gas filled colonic loop right pelvis is slight ly prominent. Gas and fecal material is seen in nondistended rectum. No suspicious calcifications. Vi sualized osseous structures are intact. IMPRESSION: Overall nonspecific but favor nonobstructive bowel gas pattern.
--- NOTE | 2019-01-18 10:44 | CT ---
EXAMINATION TYPE: CT chest w con DATE OF EXAM: 01/18/2019 COMPARISON: None HISTORY: 73-year-old male Myasthenia gravis rule out thymoma. TECHNIQUE: Contiguous axial scanning of the chest after the administration of 100 mL of Isovue 300. Coronal/sagittal reconstructions performed. CT DLP: 494.7mGycm. Automatic exposure control utilized for a dose reduction. FINDINGS: NG tube courses into the stomach. Heart normal size with trace anterior pericardial fluid. Aorta normal caliber with bovine configuration to the aortic arch. Borderline enlarged caliber to the main right and left pulmonary arteries at 2.6 and 2.5 cm, respecti vely, suggesting underlying pulmonary arterial hypertension. No thoracic lymphadenopathy by CT size criteria. No anterior mediastinal mass. There is extensive debris and material plugging the left mainstem bronchus a left lower lobe bronchi. There seems to be associated collapse of the basilar left lower lobe. Elevation of the left hemidiap hragm may be a secondary phenomenon. Motion artifacts. Right lung appears clear. No pleural effusion seen. Visualized upper abdomen shows splenule is in the left upper quadrant. Bones: Dextroconvex scoliosis. There is an acute to subacute appearing superior endplate fracture of T11 result in mild anterior wedging. Fracture lucency remains visualized. No retropulsion into the sp inal canal. Accentuated lower thoracic kyphosis. IMPRESSION: 1. NG tube positioned in the stomach. 2. Extensive secretions and debris plugging the left mainstem bronchus and extending throughout the l eft lower lobe bronchi. There is associated collapse of the basilar segments of the left lower lobe. Elevation of left hemidiaphragm is likely a secondary phenomenon from the volume loss. The bronchus w ill need to be cleared. 3. Acute versus subacute superior endplate fracture of T11. No retropulsion into the spinal canal. 4. Suspected underlying pulmonary arterial hypertension. 5. No visualized thymoma.
[2019-01-18] MEDS: ASPIRIN 300 MG SUPP RECTAL SCH (11:05)
--- NOTE | 2019-01-18 11:30 | MR ---
EXAMINATION TYPE: MR angio head wo con DATE OF EXAM: 01/18/2019 COMPARISON: NONE HISTORY: Stroke, bulbar palsy TECHNIQUE: Time of flight images focusing on the [place] of [place] were performed without contrast.. 2-D and 3-D postprocessing imaging is performed on the MRI scanner. FINDINGS: There is a dominant right vertebral artery. Vertebral arteries are patent to basilar junction. There is no significant focal stenosis or aneurysm al change seen. There is small caliber vertebrobasilar system. There are hypoplastic bilateral P1 seg ments with filling of P2 segments due to patent posterior communicating arteries. There is patent small caliber anterior communicating artery near image 103. There is no significant f ocal stenosis or aneurysmal change in the [place] of [place]. IMPRESSION: No aneurysmal change at level of [place] of [place]. Possible underlying vertebrobasilar in sufficiency, correlate clinically.
--- NOTE | 2019-01-18 11:51 | MR ---
EXAMINATION TYPE: MR brain wo/w con DATE OF EXAM: 01/18/2019 COMPARISON: CT brain from yesterday. HISTORY: Stroke, bulbar palsy. . Admitted for carpal speech and dysphagia acute onset yesterday. TECHNIQUE: Multiplanar, multisequence images of the brain and brainstem is performed without and with IV contras t, utilizing 10 mL intravenous Gadavist . FINDINGS: Exam slightly suboptimal due to patient motion, fast protocol utilized. Diffusion weighted images demonstrate no evidence of a recent infarct or other diffusion abnormality. There is no worri some extra-axial fluid collection. There is ventricular and sulcal prominence. There are multifocal a reas of T2 hyperintensity seen throughout the white matter bilaterally. Midline structures demonstrate normal morphology. The craniocervical junction appears within normal limits. Post contrast images demonstrate no abnormal enhancement. The dural venous sinuses appear pa tent. Mild mucosal thickening ethmoid sinuses is present. Mild mucosal thickening inferior bilateral maxillary sinuses is seen. Diverging lenses are redemonstrated. IMPRESSION: 1. No evidence of a recent infarct. 2. Mild diffuse cerebral atrophy and moderate chronic small vessel ischemic changes are identified. N o suspicious enhancement is seen. 3. Redemonstration of divergent lenses that are suspicious for underlying strabismus. Correlate clini shira.
--- NOTE | 2019-01-18 12:44 | P.CNPUL ---
History of Present Illness Consult date: 01/18/19 Requesting physician: Sheila Norwood Reason for consult: other (Possible acute myasthenia gravis crisis.) Chief complaint: Difficulty swallowing and difficulty with his speech. History of present illness: This is a 73-year-old white male with no previous significant medical history, patient presented to the ER with acute episode of nausea and chest pain and vomiting and near syncopal episode. EKG suggested anterior lateral ST changes hence the patient was seen by cardiology, and his cardiac catheterization was normal. Shortly after his cardiac catheterization, patient started having diff iculty swallowing and choking sensations he was also experiencing difficulty with his speech becoming slurred. Patient was also noted to have some facial paralysis with dysarthria and dysphagia. This is clearly a very new onset of multiple neurological symptoms, patient had no diplopia. Hence there was a major concern that the patient may be experiencing acute myasthenic crisis. Acetylcholine receptors antibodies are pending MRI is pending patient was transferred to [facility] and admitted to the ICU started on IVIG, and pyridostigmine. Over the last 24 hours, patient had minimal improvement. Patient was seen by neurology on consultation, and the recommendation was to start IVIG, neostigmine, and awaiting further diagnostic workup. I was planning to order a CT of the chest to rule out thymoma, however patient told me that he may have had already a CT of the chest at [facility] were in he presented initially to the ER prior to transfer. After evaluating the patient, I recommended close monitoring of his spirometry, bedside PFT was ordered, and he will have nif evaluation every 4 hours. A nasogastric tube was placed yesterday, and the patient was experiencing significant amount of bilious drainage from the nasogastric tube. KUB showed nonspecific bowel gas pattern. As I was dictating this note, the reports of his MRI came back showing no evidence of infarct, mild diffuse cerebral atrophy, no suspicious enhancement noted. Labs showed relatively normal CBC and a relatively normal electrolytes. CT of the chest showed extensive secretions and debris plugging the left mainstem bronchus extending throughout the left lower lobe bronchi. Atelectasis of basilar segments of the left lower lobe noted. Patient may require bronchoscopic evaluation. No evidence of thymoma. Review of Systems Constitutional: Denies weight loss, fevers chills, night sweats. Eyes: Denies diplopia blurred vision. Ears: Denies earache nose, mouth and throat: Denies sore throat, no nasal discharge, had near syncope before admission. Cardiovascular: Presently denies any chest pain, no palpitations, no orthopnea, no PND. Respiratory: Constant clearing of the throat, denies shortness of breath. Denies chest pain. Gastrointestinal: Nausea vomiting, denies abdominal pain melena or hematemesis. Genitourinary: Denied dysuria frequency urgency. Musculoskeletal: Denies arthralgia or myalgia. Integumentary: Denies any rashes Neurological: As noted in history of the present illness. Psychiatric: Denies symptoms of active depression Endocrine: Denies heat or cold intolerance. Hematologic: Denies clotting bleeding or bruising. Past Medical History Past Medical History: Chest Pain / Angina Additional Past Medical History / Comment(s): Arthritis L hip and spine, gastric ulcer, constipation, head injury/concussion as child which left him E[place] in L ear. History of Any Multi-Drug Resistant Organisms: None Reported Past Surgical History: Unable to Obtain Additional Past Surgical History / Comment(s): R shoulder surgery for spurs, exploratoty/stomach surgery gastric ulcer Additional Past Anesthesia/Blood Transfusion Reaction / Comment(s): Pt recieved blood in past d/t stomach ulcer/bleed without reaction. Past Psychological History: No Psychological Hx Reported Smoking Status: Former smoker Past Alcohol Use History: None Reported Past Drug Use History: None Reported - Past Family History Father Family Medical History: Myocardial Infarction (MO) Additional Family Medical History / Comment(s): Father of a MO at the age of 72 yrs. Mother Family Medical History: No Reported History Additional Family Medical History / Comment(s): Mother was healthy. Medications and Allergies Home Medications Medication Instructions Recorded Confirmed Type Cholecalciferol (Vitamin D3) 2,000 unit PO DAILY 01/17/19 01/17/19 History [Vitamin D3] Allergies Allergy/AdvReac Type Severity Reaction Status Date / Time bee venom protein (honey bee) Allergy Swelling Verified 01/17/19 15:40 Physical Exam Vitals: Vital Signs Temp Pulse Pulse Pulse Resp BP BP 01/18/19 09:00 93 18 148/74 01/18/19 08:00 98.4 F 93 23 140/71 01/18/19 07:00 88 18 147/118 01/18/19 06:00 99 20 141/79 01/18/19 05:00 121 H 17 136/76 01/18/19 04:00 86 13 126/74 01/18/19 03:00 82 17 155/74 01/18/19 02:00 121 H 25 H 135/70 01/18/19 01:00 96 8 L 139/78 01/18/19 00:19 98 10 L 145/73 01/18/19 00:00 98.4 F 99 23 168/81 01/17/19 23:00 101 H 15 146/116 01/17/19 22:00 93 17 160/101 01/17/19 21:00 102 H 16 163/88 01/17/19 20:00 98.6 F 96 13 158/94 01/17/19 19:36 20 01/17/19 19:00 101 H 22 148/97 01/17/19 18:00 99 F 105 H 23 149/93 01/17/19 16:45 69 20 126/87 01/17/19 16:15 62 20 133/69 01/17/19 15:45 108 H 20 165/99 01/17/19 15:30 98 20 153/81 01/17/19 15:15 99 16 144/77 01/17/19 14:45 20 01/17/19 14:40 98.6 F 97 20 134/62 01/17/19 13:07 98.5 F 95 16 126/79 Pulse Ox 01/18/19 09:00 95 01/18/19 08:00 94 L 01/18/19 07:00 93 L 01/18/19 06:00 95 01/18/19 05:00 92 L 01/18/19 04:00 94 L 01/18/19 03:00 93 L 01/18/19 02:00 92 L 01/18/19 01:00 95 01/18/19 00:19 95 01/18/19 00:00 92 L 01/17/19 23:00 97 01/17/19 22:00 96 01/17/19 21:00 95 01/17/19 20:00 94 L 01/17/19 19:36 08 19:00 96 01/17/19 18:00 96 01/17/19 16:45 97 01/17/19 16:15 98 05/08/19 15:45 98 01/17/19 15:30 98 01/17/19 15:15 95 01/17/19 14:45 01/17/19 14:40 95 01/17/19 13:07 98 Intake and Output 01/17/19 01/18/19 01/18/19 22:59 06:59 14:59 Intake Total 525 600 425 Output Total 400 2025 75 Balance 125 -1425 350 Intake: IV 525 600 425 Immune Globulin ( 300 Gammagard) 30 gm In Empty Bag 1 bag @ Per Protocol IV .Q0M ONE Rx#: [id number] Magnesium Sulfate-D5w Pmx 200 1 gm In Dextrose/Water 1 100ml.bag @ 100 mls/hr IVPB Q1H [facility] Rx#: [id number] Sodium Chloride 0.9% 1, 225 600 225 000 ml @ 75 mls/hr IV . [id number] [facility] Rx#:[id number] Output: Gastric Drainage 1800 Urine 400 225 75 Other: Voiding Method Urinal Urinal Urinal Weight 85.7 kg Physical Exam: Revealed a 73-year-old white male, in no form of respiratory di stress, sitting in bed, nasogastric tube in place, significant drainage noted via nasogastric tube. Head: Atraumatic, normocephalic. evidence of ptosis bilaterally HEENT:[Neck is supple.] [No neck masses.] [No thyromegaly.] [No JVD.] Chest: [Extremely diminished breath sounds at the bases especially at the left base, no rhonchi no wheezes..] Cardiac Exam: [Normal S1 and S2, no S3 gallop, no murmur.] Abdomen: [Soft, nontender, no megaly, no rebound, no guarding, normal bowel sounds.] Extremities: [No clubbing, no edema, no cyanosis.] Neurological Exam: PERRLA, EOMI, minimal restriction of gaze to the right and left, no diplopia, bifacial weakness noted involving upper and lower part of the face, mild ptosis bilaterally. Muscle strength is intact, in upper and lower extremities. Psychiatric: Normal mood, affect and mental status examination. Skin: No rashes..] Results - Laboratory Findings CBC and BMP: 01/18/19 04:46 01/18/19 04:46 Abnormal lab findings: Abnormal Labs 05/08/19 05/08/19 05/08/19 14:39 17:26 17:26 WBC 14.8 H RBC 3.93 L MCV 104.0 H Neutrophils # 12.2 H Lymphocytes # Monocytes # 1.1 H Glucose 110 H POC Glucose (mg/dL) 122 H 01/17/19 01/18/19 01/18/19 17:26 00:10 04:46 WBC 13.8 H RBC 3.91 L MCV 103.1 H Neutrophils # 12.2 H Lymphocytes # 0.8 L Monocytes # Glucose POC Glucose (mg/dL) 105 H 111 H - Diagnostic Findings Chest x-ray: image reviewed CT scan - chest: image reviewed Additional studies: MRI was also reviewed, all studies were reviewed and report on the studies reviewed Assessment and Plan Assessment: Impression: Acute dysphagia, dysarthria, possible acute myasthenia gravis crisis possible CVA. Patient is at high risk of developing respiratory failure, hence we'll continue to monitor the patient in the ICU, I have ordered a bedside spirometry, and will monitor his negative inspiratory force every [address] of the chest, patient is developing mostly atelectasis at the left base, may require bronchoscopy, however considering the patient's neurological status, I have a strong feeling if bronchoscoped now there is a likely chance that the patient will require intubation and mechanical ventilation. Would rather wait and monitor for now. Acute chest pain with negative cardiac catheterization findings. Recommendation: Continue to monitor in the ICU, continue to monitor her pulmonary status and negative inspiratory force, continue IVIG and pyridostigmine, continue nasogastric tube to suction, will continue to follow. Prognosis at this point is guarded. Time with Patient: Greater than 30
--- NOTE | 2019-01-18 13:22 | XR ---
EXAMINATION TYPE: XR chest 1V DATE OF EXAM: 01/18/2019 CLINICAL HISTORY: NG tube placement TECHNIQUE: Single AP portable frontal view of the chest is obtained. COMPARISON: Chest x-ray and CT chest from earlier today FINDINGS: Nasogastric tube projects below diaphragm. There is elevated left hemidiaphragm with chron ic left basilar atelectasis and/or infiltrate. Right lung remains clear. Cardiac silhouette size is m ildly enlarged. Osseous structures are intact. IMPRESSION: Successful placement of nasogastric tube below diaphragm. Persistent elevated left hemidi aphragm with left basilar atelectasis and/or infiltrate.
--- NOTE | 2019-01-18 13:29 | P.PN ---
Subjective Progress Note Date: 01/18/19 73 years old healthy male with no significant past medical history patient of Dr. Alonso comes in with nausea, chest pain and vomiting. Patient was out in the down paying his bills when he had a near syncope event he was brought to the ER on evaluation EKG suggested indeed revealed anterior lateral ST changes suggestive of PR. Cardiology was consulted who took the patient for cardiac cath. Cardiac catheterization was negative for any coronary artery disease but patient started having difficulty swallowing post extubation and was found choking on his secretions despite repeated suctioning. According to the history provided by the patient it appears patient was having some heaving since morning and was having some substernal chest pain for the past few days. On evaluation in the patient's room it appears patient has facial paralysis and difficulty speaking with dysphagia. This is a new onset of symptoms with no previous episodes. Patient also some diplopia and facial droop bilaterally. Patient did get Xylocaine IV during the procedure which might have precipitated the event. Acetal choline receptor antibodies ordered. MRI ordered stat. Patient initiated on IVIG for 5 days and pyridostigmine treatment started low dose of 30 mg 3 times a day. Patient was a direct transfer from [facility]. 01/18: Echocardiogram reveals EF of 60-65% with borderline concentric left v entricular hypertrophy. CT of the brain showed age-related atrophy and chronic small vessel ischemic change without acute intracranial process. CT of the chest reveals extensive secretions and debris plugging the left main stem bronchus and extending throughout the left lower lobe bronchi. There is collapsed basilar segments of the left lower lobe. Elevation of left hemidiaphragm likely secondary to phenomenon from volume loss. Bronchus needs to be cleared. Acute versus subacute superior endplate fracture of T11. No retropulsion to spinal. Suspected underlying pulmonary artery hypertension. No visualized thymoma. KUB of the abdomen no obstructive bowel gas pattern. Patient has been seen by neurologist, Dr. Sweeney, and MRI of the brain has been ordered to rule out stroke, hold IVIG until MRI is done. We will rule out acute bulbar myasthenia/myasthenia crisis, CVA less likely. Patient has been started on Mestinon 30 mg 3 times daily. Repeat lab work reveals white count of 13.8, hemoglobin 13.1. Electrolytes within normal limits and creatinine 0.73. CARLOS screen is negative. He has been seen by speech therapy and is on strict nothing by mouth and Modified barium swallow ordered. Vital signs reveal patient is afebrile, heart rate in the 80s and 90s, blood pressure 148/74, pulse ox 95% on room air. Patient is seen in the intensive care unit. He is unable to manage s ecretions. Review of Systems Constitutional: Denies chills, Denies fever, endorses lethargy. Denies poor appetite, Denies weight loss Eyes: denies decreased vision, denies diplopia, denies discharge, denies pain Ears: deny: decreased hearing Ears, nose, mouth and throat: Denies dental pain, Denies headache, Denies nasal discharge, Denies nose pain Cardiovascular: Denies chest pain, Denies decreased exercise tolerance, Denies edema, Denies high blood pressure, Denies irregular heart beat, Denies palpitations, Denies paroxysmal nocturnal dyspnea, Denies rapid heart beat, Denies shortness of breath Respiratory: Denies congestion, Denies cough, Denies cough with sputum, Denies dyspnea, Denies home oxygen, Denies wheezing Gastrointestinal: Denies abdominal pain, Denies change in bowel habits, Denies coffee ground emesis, Denies early satiety, Denies excessive gas, Denies heartburn, Denies hematemesis, Denies hematochezia, Denies loss of appetite, Denies nausea, Denies vomiting Genitourinary: Denies dysuria, Denies flank pain, Denies kidney stones, Denies menorrhagia, Denies urgency, Denies urinary frequency Musculoskeletal: Denies gait dysfunction, Denies limitation of motion, Denies morning stiffness, Denies muscle cramps Integumentary: Denies rash, Denies wounds, Denies brittle nails, Denies change in hair/nails, Denies darkening of skin Neurological: Denies balance difficulties, endorses change in speech, endorses double vision, Denies gait dysfunction, Denies loss of vision, Denies motor disturbance, Denies numbness, Denies paralysis, Denies paresthesias, Denies seizures endorses dysarthria and dysphagia Psychiatric: Denies anxiety, Denies depression Endocrine: Denies excessive sweating, Denies excessive thirst, Denies high blood sugars, Denies palpitations Hematologic/Lymphatic: Denies easy bruising, Denies lymphadenopathy Objective - Vital Signs Vital signs: Vital Signs Temp 98.4 F 01/18/19 00:00 Pulse 99 01/18/19 06:00 Resp 20 01/18/19 06:00 BP 141/79 01/18/19 06:00 Pulse Ox 95 01/18/19 06:00 Intake & Output 01/17/19 01/18/19 01/18/19 18:59 06:59 18:59 Intake Total 50 1125 Output Total 200 2225 Balance -150 -1100 Weight 99.337 kg Intake: IV 50 1125 Immune Globulin ( 300 Gammagard) 30 gm In Empty Bag 1 bag @ Per Protocol IV .Q0M [facility] Rx#: [id number] Sodium Chloride 0.9% 1, 825 000 ml @ 75 mls/hr IV . [id number] [facility] Rx#:[id number] Output: Gastric Drainage 1800 Urine 200 425 Other: Voiding Method Urinal - Exam General appearance: cooperative, no acute distress, obese - EENT Eyes: anicteric sclerae, PERRLA, normal appearance difficulty keeping her eyes open with some ptosis bilaterally, and flattening of wrinkles on the left side of the face ENT: hearing grossly normal - Neck Neck: no lymphadenopathy, normal ROM, no other, no rigidity, no stridor, no thyromegaly - Respiratory Respiratory: bilateral: CTA, negative: diminished, dullness, rales, rhonchi - Cardiovascular Rhythm: regular Heart sounds: normal: S1, S2 Abnormal Heart Sounds: no systolic murmur, no diastolic murmur, no rub, no S3 Gallop, no S4 Gallop, no click, no other - Gastrointestinal General gastrointestinal: normal bowel sounds, soft - Integumentary Integumentary: no rash - Neurologic Neurologic: Appears to have bilateral facial nerve pallor with difficulty keeping the eyes open, uvula appears to be in the center with no time deviation sensation intact bilaterally no motor deficit seen, balance is intact - Musculoskeletal Musculoskeletal: gait normal, strength equal bilaterally - Psychiatric Psychiatric: A&O x's 3, appropriate affect - Labs CBC & Chem 7: 01/18/19 04:46 01/18/19 04:46 Labs: Abnormal Lab Results - Last 24 Hours (Table) 01/17/19 01/17/19 01/17/19 Range/Units 14:39 17:26 17:26 WBC 14.8 H (3.8-10.6) k/uL RBC 3.93 L (4.30-5.90) m/uL MCV 104.0 H (80.0-100.0) fL Neutrophils # 12.2 H (1.3-7.7) k/uL Lymphocytes # (1.0-4.8) k/uL Monocytes # 1.1 H (0-1.0) k/uL Glucose 110 H (74-99) mg/dL POC Glucose (mg/dL) 122 H (75-99) mg/dL 01/17/19 01/18/19 01/18/19 Range/Units 17:26 00:10 04:46 WBC 13.8 H (3.8-10.6) k/uL RBC 3.91 L (4.30-5.90) m/uL MCV 103.1 H (80.0-100.0) fL Neutrophils # 12.2 H (1.3-7.7) k/uL Lymphocytes # 0.8 L (1.0-4.8) k/uL Monocytes # (0-1.0) k/uL Glucose (74-99) mg/dL POC Glucose (mg/dL) 105 H 111 H (75-99) mg/dL Assessment and Plan Plan: #1 acute dysarthria with dysphagia with doses likely secondary to 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 Neurology consult placed. CT head is negative for any acute abnormality. MRI ordered to rule out any cerebellar stroke bowel though appears unlikely with patient's presentation. Since patient is not able to keep anything down orally keep patient nothing by mouth. Place NG tube. Pyridostigmine initiated at 30 mg 3 times a day. ACHR receptor antibodies ordered. IVIG initiated for 5 days on hold for MRI. Likely exacerbated by Xylocaine given during the cardiac cath. Avoid any sedating medication, antibiotic , beta blockers tract drug that can worse patient's symptoms #2 acute chest pain EKG suggestive of ST or T-wave changes. Cardiac cath negative for any coronary artery disease. #3 nausea/vomiting likely secondary to above. Zofran 4 mg IV every 6 #4 DVT prophylaxis with ambulation #6 GI prophylaxis with Pepcid 20 mg IV daily CODE STATUS: Full code Discharge plan: To be determined Impression and plan of care have been directed as dictated by the signing physician. Cira Crowley nurse practitioner acting as scribe for signing physician.
[2019-01-18 14:16] LABS: ABG Base Excess 3.8 mmol/L; ABG HCO3 28 mmol/L (21-25); ABG Oxygen Saturation 92.5 % (94-97); ABG PCO2 39 mmHg (35-45); ABG PH 7.46 (7.35-7.45); ABG PO2 61 mmHg (83-108); ABG TCO2 29 mmol/L (19-24)
--- NOTE | 2019-01-18 14:36 | P.PN ---
Progress Note - Text Progress Note Date: 01/18/19 Patient had MRI of the brain with and without contrast, which is completely normal with no evidence of any acute ischemia in the brainstem, cerebellum or the cerebrum. MRA of the brain also showed patent vertebrobasilar system. Basilar artery is narrow but still patent. No abnormal contour noted. Spoke to the network services project manager, who performed cardiac catheterization. According to the network services project manager, patient's speech was dysfunctional, difficulty swallowing food even before he underwent cardiac catheterization. I further spoke to patient's sister, who provided additional history. Patient was perfectly fine on 01/16/2019. He would speak normally, eat food and drink without any issue. On Tuesday, yesterday he complained of vomiting. He was still able to go to pay his bills. Afterwards patient's sister does not know what happened and how he got to the hospital. On reviewing records from [facility], according to ED report, patient presented to the ER of [facility] at 11:21 AM .for near syncopal episode. Patient was out in the town to pay his bills when he started to become diaphoretic, was near syncopal. When EMS arrived, the patient has stable vital signs. It took a long time for them to convince the patient to go to the ED. He was complaining of persistent nausea after he was given IV Zofran. Also complaining of bubble in his chest. He had no back pain, no difficulty breathing reported in the ED report. His blood pressure was 107/87, pulse rate 80, respiration 18 and temperature 90.7F. Patient had abnormalities in the EKG, which prompted transfer to the [facility] for cardiac catheterization. Patient on examination patient appears definitely better. He is able to bring on the phlegm much easily as compared to yesterday. His speech is more understandable. Patient appears less short of breath. His strength is normal in the arms and legs. Still with weakness of by facial muscles. Reflexes are 1+ in the biceps, 1 at brachioradialis, 1+ at the knees, 0 ankles and plantars equivocal, possibly up. No ataxia for [id number] testing on either side. Differential diagnosis is between Guillain-Ashraf syndrome versus myasthenia gravis. Presentation is very unusual for each. Consider lumbar puncture to evaluate for elevated proteins also. Patient has been started on aspirin 300 mg rectally daily. We will continue IVIG for 4 more days. Continue Mestinon. Await results of acetylcholine receptor antibodies. Consider GI consultation for large hiatal hernia. Tried to contact Dr Norwood and [facility] Please call for any questions. Tamara Sweeney MD
--- NOTE | 2019-01-18 17:28 | FL ---
MODIFIED SWALLOW / DEGLUTITION STUDY DATE OF EXAM: 01/18/2019 CLINICAL HISTORY: 73-year-old male Dysphagia. Confusion, possible stroke, gurgling and cough. Incompl ete swallow at the bedside. TECHNIQUE: Deglutition study is performed utilizing thin liquid and honey liquid barium. COMPARISON: None. Total fluoroscopy time: 48 seconds. Total images: None. Real-time fluoroscopy support was provided to speech pathology. FINDINGS: There is aureliano aspiration with both thin and honey liquid consistencies. Exam is prematurely terminat ed. Incomplete swallows demonstrated. IMPRESSION: Exam terminated after aureliano aspiration with thin liquid and honey liquid consistency is noted. Incomp lete swallow. Please refer to speech therapist notes for further details if necessary.
[2019-01-18] MEDS ORDERED: IMMUNE GLOBULIN (GAMMAGARD) 30 GM in EMPTY BAG 1 BAG IV ONE (18:00)
[2019-01-18] MEDS: ENOXAPARIN 40 MG/0.4 ML SYRINGE SQ SCH (18:05)
[2019-01-18] MEDS: IMMUNE GLOBULIN (GAMMAGARD) 5 GM in EMPTY BAG 1 BAG IV SCH ×5 (18:13→22:24)
--- NOTE | 2019-01-18 20:06 | CONS ---
CONSULTATION REASON FOR CONSULTATION: Dysphagia. HISTORY: This is a 73-year-old white male who had an acute cardiac event yesterday and was transferred here from an outside institution. He had cardiac catheterization which was normal apparently, but shortly after the cardiac catheterization the patient had acute onset of difficulty with swallowing and choking and difficulty with speech as well as decreased facial movement. It was felt that he may have an acute myasthenia crisis and therefore was started on medication for this, even while his antibodies were pending. MRI was negative. Nasogastric tube has been placed. He apparently failed modified barium swallow, even with thickened fluids, and has NG tube in place but is n.p.o. The modified barium swallow result is not noted in the chart but was reported by his nurse. He has improved with his cough and dysphagia as well as his speech as well as with the Mestinon. He did start gammaglobulin also. PAST MEDICAL HISTORY: 1. Chest pain and angina. 2. Arthritis, hip and spine. 3. Gastric ulcer. PAST SURGICAL HISTORY: 1. Right shoulder surgery. 2. Gastric surgery. SOCIAL HISTORY: Patient did smoke but does not now. Alcohol consumption none. FAMILY HISTORY: Positive for myocardial infarction. ALLERGIES: BEE STINGS. MEDICATIONS: Medications will not be enumerated, as they are in the chart already. PHYSICAL EXAMINATION: This is an elderly white male in no acute distress. He is awake and alert and oriented. He has a wet speech tone and is clearing his throat frequently and using oral suction to aid in this. HEENT: Head normocephalic and atraumatic. Ears: Canals are clear. Tympanic membranes unremarkable and mobile. Nose shows no drainage or obstruction other than nasogastric tube on the right. Mouth and throat show no abnormal masses or lesions. The hypopharynx and larynx exam, including a flexible laryngoscopy, shows secretions in the vallecula. A brief look at the vocal cords was obtained, even though there are secretions and nasogastric tube in place. Vocal cord mobility appeared to be normal on vocalization. Cranial nerve function shows the facial nerve function has only mild bilateral weakness. Tongue mobility is decreased, but he can protrude the tongue. Palatal elevation was normal. ASSESSMENT: Dysphagia secondary to neuromuscular etiology, possible myasthenia gravis. The patient will be continued to be treated by the neurology staff as he is improving. Would continue n.p.o. status at this point until he improves with his dysphagia and able to protect his airway more so with continued speech therapy and monitoring by the neurologist. Once this does improve and he is able to tolerate oral intake, then could start p.o. intake. In the meantime, NG tube could also be used for enteral nutrition. If there are any questions or concerns, please free to contact me. Note that approximately 35 minutes was spent in consultation with the patient. MMJOSE / IJN: [id number] /
--- NOTE | 2019-01-18 20:11 | PCN ---
PROCEDURE NOTE PREOPERATIVE DIAGNOSIS: Dysphagia. POSTOPERATIVE DIAGNOSIS: Dysphagia. PROCEDURE: Flexible laryngoscopy. ANESTHESIA: None. COMPLICATIONS: None. BLOOD LOSS: None. PROCEDURE DESCRIPTION: The patient was in the hospital bed and flexible laryngoscopy was performed through the left nasal cavity with systematic evaluation of the left nasal cavity, nasopharynx, oropharynx, hypopharynx and larynx with the findings noted in the clinic consultation note. The patient tolerated the procedure well and the laryngoscope was withdrawn. No complications. MMODL / IJN: [id number] /
[2019-01-18] MEDS ORDERED: MIDAZOLAM 1 MG/ML 5 ML VIAL ONE (23:40)
[2019-01-18] MEDS ORDERED: PROPOFOL 10 MG/ML 20 ML VIAL IV ONE (23:40)
[2019-01-19 00:20] LABS: ABG Base Excess 0.2 mmol/L; ABG HCO3 24 mmol/L (21-25); ABG PCO2 36 mmHg (35-45); ABG PH 7.44 (7.35-7.45); ABG PO2 353 mmHg (83-108); ABG TCO2 26 mmol/L (19-24)
[2019-01-19] MEDS: IMMUNE GLOBULIN (GAMMAGARD) 5 GM in EMPTY BAG 1 BAG IV SCH ×4 (00:22→21:14)
--- NOTE | 2019-01-19 00:22 | XR ---
EXAM: XR Chest, 1 View CLINICAL HISTORY: s/p intubation TECHNIQUE: Frontal view of the chest. COMPARISON: No relevant prior studies available. FINDINGS: Lungs: Endotracheal tube 2.3 cm above the vincenzo appears be a opacification of the left lower lobe with blunting of left costophrenic angle. Pleural space: Blunting left costophrenic angle. There is a small pleural effusion. No pneumothorax. Heart: Prominence the cardiac silhouette blunting left costophrenic angle obscured left heart margin Mediastinum: Unremarkable. Bones/joints: Unremarkable. IMPRESSION: Endotracheal tube 2.3 cm above the vincenzo gastric tube below the diaphragm desiccative not visualized
[2019-01-19] MEDS: PROPOFOL 1,000 MG in EMPTY BAG 1 BAG IV SCH ×5 (00:30→18:05)
[2019-01-19] MEDS: NOREPINEPHRINE 4 MG in SODIUM CHLORIDE 0.9% 250 ML IV SCH ×2 (01:00→16:16)
[2019-01-19] MEDS ORDERED: SODIUM CHLORIDE 0.9% 2,000 ML IV ONE (03:55)
[2019-01-19] MEDS: SODIUM CHLORIDE 0.9% 1,000 ML IV SCH ×3 (04:07→16:12)
[2019-01-19] MEDS ORDERED: FUROSEMIDE 10 MG/ML 2 ML VIAL IV ONE (04:07)
[2019-01-19 04:38] LABS: Glucose,Whole Blood 92 mg/dL (75-99)
[2019-01-19 04:45] LABS: Basophils % (A) 0 %; Eosinophils % (A) 0 %; HCT 33.3 % (39.0-53.0); Lymphocytes # (A) 0.8 k/uL (1.0-4.8); Lymphocytes % (A) 8 %; MCHC 32.9 g/dL (31.0-37.0); MCV 103.2 fL (80.0-100.0); Macrocytosis Slight; Mean Platelet Volume 8.2; Monocytes # (A) 0.7 k/uL (0-1.0); Monocytes % (A) 7 %; Neutrophils # (A) 7.9 k/uL (1.3-7.7); Neutrophils % (A) 83 %; Platelet Count 255 k/uL (150-450); RBC 3.23 m/uL (4.30-5.90); RDW 13.4 % (11.5-15.5); WBC 9.5 k/uL (3.8-10.6)
[2019-01-19 04:47] LABS: Appearance,Urine Clear (Clear); Bilirubin,Urine Negative (Negative); Blood,Urine Small (Negative); Color,Urine Yellow; Glucose,Urine (UA) Negative (Negative); Ketones,Urine 3+ (Negative); Leukocyte Esterase,Urine Negative (Negative); Mucus,Urine Rare /hpf; Nitrite,Urine Negative (Negative); Protein,Urine 1+ (Negative); RBC,Urine 11 /hpf (0-5); Specific Gravity,Urine 1.037 (1.001-1.035); Squamous Epithelial Cell,Urine <1 /hpf (0-4)
[2019-01-19 04:55] LABS: Anion Gap 5 mmol/L; Blood Urea Nitrogen 14 mg/dL (9-20); Calcium 7.4 mg/dL (8.4-10.2); Carbon Dioxide 23 mmol/L (22-30); Chloride 109 mmol/L (98-107); Glucose 89 mg/dL (74-99); Magnesium 1.8 mg/dL (1.6-2.3); Potassium 3.4 mmol/L (3.5-5.1); Sodium 137 mmol/L (137-145)
[2019-01-19] MEDS: POTASSIUM BICARBONATE/CIT AC 20 MEQ TABLET.EFF NG-TUBE SCH ×2 (05:53→08:52)
[2019-01-19] MEDS: MAGNESIUM SULFATE-D5W PMX 1 GM in DEXTROSE/WATER 1 100ML.BAG IVPB SCH ×2 (05:54→08:52)
--- NOTE | 2019-01-19 07:12 | XR ---
EXAMINATION TYPE: XR chest 1V portable DATE OF EXAM: 01/19/2019 COMPARISON: 01/18/2019 HISTORY: SOB, Follow Up FINDINGS: Indwelling tubes and catheters are unchanged. Left basilar infiltrate, atelectasis and/or effusion is unchanged. Stable appearance of the cardio-mediastinal structures at this time. IMPRESSION: 1. Stable portable chest. Clinical correlation and follow up until resolution is recommended.
--- NOTE | 2019-01-19 07:14 | P.PN ---
Subjective Progress Note Date: 01/19/19 Principal diagnosis: Generalized weakness This is a 73-year-old gentleman who was transferred from [facility] to [facility] for possible acute anterior NM. He underwent an emergent heart catheterization and was found to have normal coronaries. Subsequently he was seen by the internal medicine team and was diagnosed with mystania gravis. He was started on IVIG. Neurology service is on the case. On follow-up with the patient today, January 192018, apparently the patient was hypoxic last night and he developed an acute respiratory failure requiring intubation and mechanical ventilation. He underwent an echocardiogram which revealed normal LV function without any significant valvular abnormalities. From the cardiovascular standpoint of view, we will follow-up with the patient on when necessary case. Objective - Vital Signs Vital signs: Vital Signs Temp 98.1 F 01/19/19 04:00 Pulse 62 01/19/19 05:00 Resp 18 01/19/19 05:00 BP 94/50 01/19/19 05:00 Pulse Ox 100 01/19/19 05:00 Intake & Output 01/18/19 01/19/19 01/19/19 18:59 06:59 18:59 Intake Total 8205.035 1409.864 Output Total 650 1130 Balance 797.415 5583.864 Weight 89 kg Intake: IV 1250 3300 Immune Globulin ( 300 Gammagard) 5 gm In Empty Bag 1 bag @ 50 mls/hr IV Q1H [facility] Rx#:[id number] Magnesium Sulfate-D5w Pmx 200 1 gm In Dextrose/Water 1 100ml.bag @ 100 mls/hr IVPB Q1H [facility] Rx#: [id number] Sodium Chloride 0.9% 1, 375 1000 000 ml @ 125 mls/hr IV . Q8H [facility] Rx#:[id number] Sodium Chloride 0.9% 1, 675 000 ml @ 75 mls/hr IV . [id number] [facility] Rx#:[id number] Sodium Chloride 0.9% 2, 2000 000 ml @ 999 mls/hr IV . Q2H1M ONE Rx#:[id number] Intake, IV Titration 0.833 251.864 Amount Immune Globulin ( 0.833 192.5 Gammagard) 5 gm In Empty Bag 1 bag @ 50 mls/hr IV Q1H [facility] Rx#:[id number] Norepinephrine 4 mg In 6.53 Sodium Chloride 0.9% 250 ml @ 0.05 MCG/KG/MIN 16. 326 mls/hr IV .[id number] [facility] Rx#:[id number] Propofol 1,000 mg In 52.834 Empty Bag 1 bag @ Titrate IV .Q0M [facility] Rx#: [id number] Output: Gastric Drainage 700 Urine 650 430 Other: Voiding Method Urinal Indwelling Catheter ABP, PAP, CO, CI - Last Documented Arterial Blood Pressure 121/70 - Constitutional General appearance: Present: no acute distress - Respiratory Respiratory: bilateral: CTA - Cardiovascular Rhythm: regular Heart sounds: normal: S1, S2 - Labs CBC & Chem 7: 01/19/19 04:30 01/19/19 04:30 Labs: Abnormal Lab Results - Last 24 Hours (Table) 01/18/19 01/19/19 01/19/19 Range/Units 14:14 00:15 00:16 RBC (4.30-5.90) m/uL Hgb (13.0-17.5) gm/dL Hct (39.0-53.0) % MCV (80.0-100.0) fL Neutrophils # (1.3-7.7) k/uL Lymphocytes # (1.0-4.8) k/uL ABG pH 7.46 H (7.35-7.45) ABG pO2 61 L 353 H (83-108) mmHg ABG HCO3 28 H (21-25) mmol/L ABG Total CO2 29 H 26 H (19-24) mmol/L ABG O2 Saturation 92.5 L 100.0 H (94-97) % Potassium (3.5-5.1) mmol/L Chloride (98-107) mmol/L Creatinine (0.66-1.25) mg/dL Calcium (8.4-10.2) mg/dL Ur Specific [place] 1.037 H (1.001-1.035) Urine Protein 1+ H (Negative) Urine Ketones 3+ H (Negative) Urine Blood Small H (Negative) Urine RBC 11 H (0-5) /hpf Urine Mucus Rare H (None) /hpf 01/19/19 01/19/19 Range/Units 04:30 04:30 RBC 3.23 L (4.30-5.90) m/uL Hgb 11.0 L (13.0-17.5) gm/dL Hct 33.3 L (39.0-53.0) % MCV 103.2 H (80.0-100.0) fL Neutrophils # 7.9 H (1.3-7.7) k/uL Lymphocytes # 0.8 L (1.0-4.8) k/uL ABG pH (7.35-7.45) ABG pO2 (83-108) mmHg ABG HCO3 (21-25) mmol/L ABG Total CO2 (19-24) mmol/L ABG O2 Saturation (94-97) % Potassium 3.4 L (3.5-5.1) mmol/L Chloride 109 H (98-107) mmol/L Creatinine 0.63 L (0.66-1.25) mg/dL Calcium 7.4 L (8.4-10.2) mg/dL Ur Specific [place] (1.001-1.035) Urine Protein (Negative) Urine Ketones (Negative) Urine Blood (Negative) Urine RBC (0-5) /hpf Urine Mucus (None) /hpf Microbiology - Last 24 Hours (Table) 01/18/19 23:17 Gram Stain - Preliminary Sputum Sputum Culture - Preliminary Assessment and Plan Assessment: Assessment #1 possible mysthenia gravis #2 acute hypoxic respiratory failure secondary to the above Plan #1 continue the current medical regimen #2 follow-up with the patient on when necessary case
[2019-01-19 08:23] LABS: ABG Base Excess 0.6 mmol/L; ABG HCO3 25 mmol/L (21-25); ABG Oxygen Saturation 99.5 % (94-97); ABG PCO2 39 mmHg (35-45); ABG PH 7.42 (7.35-7.45); ABG PO2 163 mmHg (83-108); ABG TCO2 26 mmol/L (19-24)
[2019-01-19] MEDS: ENOXAPARIN 40 MG/0.4 ML SYRINGE SQ SCH (08:52)
[2019-01-19] MEDS: PYRIDOSTIGMINE 60 MG TAB PO SCH ×2 (08:52→16:12)
[2019-01-19] MEDS: PANTOPRAZOLE 40 MG/10 ML VIAL IV SCH (08:52)
[2019-01-19] MEDS ORDERED: CHLORHEXIDINE GLUCONATE 15 ML CUP MUCOUS MEM SCH (09:00)
--- NOTE | 2019-01-19 09:48 | P.PN ---
Subjective Progress Note Date: 01/19/19 Patient was seen for a follow-up. Since yesterday, patient developed progressive respiratory distress, difficulty clearing secretions, requiring intubation and placement on mechanical ventilation. He also has received 2 doses of IVIG, tolerated it well. ENT has seen the patient, note reviewed. Still very weak in fascial, lingual and pharyngeal muscles. Patient's blood test shows WBC 13.8 hemoglobin 13.1 with elevated MCV 103.1. Platelets are normal. 14. Chem-7 normal. Liver functions, TSH normal 1.43. CARLOS negative. Chest x-ray from this morning showed overall stable findings, large hiatal hernia or elevated left hemidiaphragm with adjacent left basilar atelectasis and/or infiltrate. Objective - Vital Signs Vital signs: Vital Signs Temp 97.9 F 01/19/19 08:00 Pulse 61 01/19/19 08:30 Resp 18 01/19/19 08:30 BP 91/51 01/19/19 08:30 Pulse Ox 99 01/19/19 08:30 Intake & Output 01/18/19 01/19/19 01/19/19 18:59 06:59 18:59 Intake Total 1533.406 0978.864 560.786 Output Total 650 1130 685 Balance 145.117 8209.864 -124.214 Weight 89 kg Intake: IV 1250 3425 375 Immune Globulin ( 300 Gammagard) 5 gm In Empty Bag 1 bag @ 50 mls/hr IV Q1H [facility] Rx#:[id number] Magnesium Sulfate-D5w Pmx 200 1 gm In Dextrose/Water 1 100ml.bag @ 100 mls/hr IVPB Q1H [facility] Rx#: [id number] Sodium Chloride 0.9% 1, 375 1125 375 000 ml @ 125 mls/hr IV . Q8H [facility] Rx#:[id number] Sodium Chloride 0.9% 1, 675 000 ml @ 75 mls/hr IV . [id number] [facility] Rx#:[id number] Sodium Chloride 0.9% 2, 2000 000 ml @ 999 mls/hr IV . Q2H1M [facility] Rx#:[id number] Intake, IV Titration 0.833 251.864 185.786 Amount Immune Globulin ( 0.833 192.5 Gammagard) 5 gm In Empty Bag 1 bag @ 50 mls/hr IV Q1H [facility] Rx#:[id number] Magnesium Sulfate-D5w Pmx 100 1 gm In Dextrose/Water 1 100ml.bag @ 100 mls/hr IVPB Q1H [facility] Rx#: [id number] Norepinephrine 4 mg In 6.53 Sodium Chloride 0.9% 250 ml @ 0.05 MCG/KG/MIN 16. 326 mls/hr IV .[id number] [facility] Rx#:[id number] Propofol 1,000 mg In 52.834 85.786 Empty Bag 1 bag @ Titrate IV .Q0M [facility] Rx#: [id number] Output: Gastric Drainage 700 Urine 650 430 685 Other: Voiding Method Urinal Indwelling Catheter ABP, PAP, CO, CI - Last Documented Arterial Blood Pressure 125/40 - Exam On examination patient is an elderly male, intubated, sedated. Pupils are round and reacting. Patient appears to have bifacial weakness. Reflexes are trace at the arms and knees, absent ankles. - Labs CBC & Chem 7: 01/19/19 04:30 01/19/19 04:30 Labs: Abnormal Lab Results - Last 24 Hours (Table) 01/18/19 01/19/19 01/19/19 Range/Units 14:14 00:15 00:16 RBC (4.30-5.90) m/uL Hgb (13.0-17.5) gm/dL Hct (39.0-53.0) % MCV (80.0-100.0) fL Neutrophils # (1.3-7.7) k/uL Lymphocytes # (1.0-4.8) k/uL ABG pH 7.46 H (7.35-7.45) ABG pO2 61 L 353 H (83-108) mmHg ABG HCO3 28 H (21-25) mmol/L ABG Total CO2 29 H 26 H (19-24) mmol/L ABG O2 Saturation 92.5 L 100.0 H (94-97) % Potassium (3.5-5.1) mmol/L Chloride (98-107) mmol/L Creatinine (0.66-1.25) mg/dL Calcium (8.4-10.2) mg/dL Ur Specific [place] 1.037 H (1.001-1.035) Urine Protein 1+ H (Negative) Urine Ketones 3+ H (Negative) Urine Blood Small H (Negative) Urine RBC 11 H (0-5) /hpf Urine Mucus Rare H (None) /hpf 01/19/19 01/19/19 01/19/19 Range/Units 04:30 04:30 08:15 RBC 3.23 L (4.30-5.90) m/uL Hgb 11.0 L (13.0-17.5) gm/dL Hct 33.3 L (39.0-53.0) % MCV 103.2 H (80.0-100.0) fL Neutrophils # 7.9 H (1.3-7.7) k/uL Lymphocytes # 0.8 L (1.0-4.8) k/uL ABG pH (7.35-7.45) ABG pO2 163 H (83-108) mmHg ABG HCO3 (21-25) mmol/L ABG Total CO2 26 H (19-24) mmol/L ABG O2 Saturation 99.5 H (94-97) % Potassium 3.4 L (3.5-5.1) mmol/L Chloride 109 H (98-107) mmol/L Creatinine 0.63 L (0.66-1.25) mg/dL Calcium 7.4 L (8.4-10.2) mg/dL Ur Specific [place] (1.001-1.035) Urine Protein (Negative) Urine Ketones (Negative) Urine Blood (Negative) Urine RBC (0-5) /hpf Urine Mucus (None) /hpf Microbiology - Last 24 Hours (Table) 01/18/19 23:17 Gram Stain - Preliminary Sputum Sputum Culture - Preliminary Assessment and Plan Assessment: * Acute onset of bifacial weakness, dysphagia, respiratory distress. Differential diagnosis is between Guillain-Ashraf syndrome versus myasthenia gravis. Patient's reflexes are decreasing, which makes Guillain-Ashraf slightly more likely. MRI of the brain ruled out CVA. * Ventilator dependent respiratory failure due to respiratory distress, probably will need to neuromuscular dysfunction, as above Plan: * Lumbar puncture today to evaluate for high proteins, which may suggest Guillain-Ashraf syndrome. * Continue IVIG for 3 more days. * Continue ASA 300 mg rectally daily. * Await acetylcholine receptor antibodies. * Patient may need EMG and nerve conductions of upper and lower limbs, and repetitive nerve conduction studies for further diagnostic testing. * We will check some more blood testing including immune fixation electrophoresis, quantitative immunoglobulins, Sjogren's antibodies, Lyme titer, SPEP
[2019-01-19] MEDS: ASPIRIN 300 MG SUPP RECTAL SCH (10:14)
[2019-01-19 11:50] VITALS: BMI 26.6
[2019-01-19 12:03] LABS: Glucose,Whole Blood 75 mg/dL (75-99)
--- NOTE | 2019-01-19 12:55 | P.DS ---
Providers Date of admission: 01/17/19 17:04 Expected date of discharge: 01/19/19 Attending physician: Vel Lawrence Consults: 01/17/19 14:48 Consult Physician Stat Consulting Provider: Juliocesar Cifuentes Consult Reason/Comments: Medical Management/Inability to Swallow Do you want consulting provider notified?: Already Contacted 01/17/19 14:50 Consult Physician Stat Consulting Provider: Tamara Sweeney Consult Reason/Comments: dysphagia Do you want consulting provider notified?: Yes 01/17/19 16:11 Consult Physician Urgent Consulting Provider: Sadi Montelongo Consult Reason/Comments: ICU MANAGEMENT Do you want consulting provider notified?: Yes 01/18/19 12:01 Consult Physician Stat Consulting Provider: Mg Muro Consult Reason/Comments: Unable to swallow Do you want consulting provider notified?: Yes 01/18/19 14:22 Consult Physician Stat Consulting Provider: Candice Jackson Consult Reason/Comments: ileus Do you want consulting provider notified?: Yes Primary care physician: Juan Alonso [facility] Course: 73 years old healthy male with no significant past medical history patient of Dr. Alonso comes in with nausea, chest pain and vomiting. Patient was out in the down paying his bills when he had a near syncope event he was brought to the ER on evaluation EKG suggested indeed revealed anterior lateral ST changes suggestive of ME. Cardiology was consulted who took the patient for cardiac cath. Cardiac catheterization was negative for any coronary artery disease but patient started having difficulty swallowing post extubation and was found choking on his secretions despite repeated suctioning. According to the history provided by the patient it appears patient was having some heaving since morning and was having some substernal chest pain for the past few days. On evaluation in the patient's room it appears patient has facial paralysis and difficulty speaking with dysphagia. This is a new onset of symptoms with no previous episodes. Patient also some diplopia and facial droop bilaterally. Patient did get Xylocaine IV during the procedure which might have precipitated the event. Acetal choline receptor antibodies ordered. MRI ordered stat. Patient initiated on IVIG for 5 days and pyridostigmine treatment started low dose of 30 mg 3 times a day. Patient was a direct transfer from [facility]. 01/18: Echocardiogram reveals EF of 60-65% with borderline concentric left ventricular hypertrophy. CT of the brain showed age-related atrophy and chronic small vessel ischemic change without acute intracranial process. CT of the chest reveals extensive secretions and debris plugging the left main stem bronchus and extending throughout the left lower lobe bronchi. There is collapsed basilar segments of the left lower lobe. Elevation of left hemidiaphragm likely secondary to phenomenon from volume loss. Bronchus needs to be cleared. Acute versus subacute superior endplate fracture of T11. No retropulsion to spinal. Suspected underlying pulmonary artery hypertension. No visualized thymoma. KUB of the abdomen no obstructive bowel gas pattern. Patient has been seen by neurologist, Dr. Sweeney, and MRI of the brain has been ordered to rule out stroke, hold IVIG until MRI is done. We will rule out acute bulbar myasthenia/myasthenia crisis, CVA less likely. Patient has been started on Mestinon 30 mg 3 times daily. Repeat lab work reveals white count of 13.8, hemoglobin 13.1. Electrolytes within normal limits and creatinine 0.73. CARLOS screen is negative. He has been seen by speech therapy and is on strict nothing by mouth and Modified barium swallow ordered. Vital signs reveal patient is afebrile, heart rate in the 80s and 90s, blood pressure 148/74, pulse ox 95% on room air. Patient is seen in the intensive care unit. He is unable to manage secretions. 01/19: Patient was seen by Dr. Velasquez yesterday and underwent flexible laryngoscopic with recommendations to continue NG tube until dysphagia improves and he is able to protect his airway. Chest x-ray this morning shows overall stable findings, large renal hernia or elevated left hemidiaphragm with adjacent left basilar atelectasis and/or infiltrate. Early this morning, patient developed severe shortness of breath and increasing oxygen needs. Patient ended up being transitioned to 15 L high flow oxygen and could not maintain normal pulse ox and was subsequently intubated and placed on mechanical ventilation and placed on sedation. Patient has received 2 doses of IVIG. Patient has had worsening neuro function and recommendations were to transfer the patient to [facility]. Patient will require lumbar puncture, rule out GBS, botulism is within the differential. Discussed plan with the patient's sister his closest relative and she has given permission to transfer the patient. She will also check his home for can goods. Patient will be transferred to [facility] once all arrangements are completed. Discharge diagnoses: #1 acute dysarthria with dysphagia with doses likely secondary to bulbar palsy from myasthenia gravis versus GPS, botulism within the differential. #2 acute chest pain EKG suggestive of ST or T-wave changes. Cardiac cath negative for any coronary artery disease. #3 acute hypoxic respiratory failure requiring intubation and mechanical ventilation CODE STATUS: Full code Transfer to [facility] Impression and plan of care have been directed as dictated by the signing physician. Cira Crowley nurse practitioner acting as scribe for signing physician. Patient Condition at Discharge: Stable Plan - Discharge Summary Discharge Rx Participant: Yes New Discharge Prescriptions: No Action Cholecalciferol (Vitamin D3) [Vitamin D3] 2,000 unit PO DAILY Discharge Medication List Cholecalciferol (Vitamin D3) [Vitamin D3] 2,000 unit PO DAILY 01/17/19 [History] Follow up Appointment(s)/Referral(s): Juan Alonso MD [Primary Care Provider] - 1-2 days
--- NOTE | 2019-01-19 13:04 | P.PN ---
Subjective Progress Note Date: 01/19/19 Principal diagnosis: Acute dysphagia and dysarthria and respiratory distress, possible myasthenia gravis crisis. This is a 73-year-old white male with no previous significant medical history, patient presented to the ER with acute episode of nausea and chest pain and vomiting and near syncopal episode. EKG suggested anterior lateral ST changes hence the patient was seen by cardiology, and his cardiac catheterization was normal. Shortly after his cardiac catheterization, patient started having difficulty swallowing and choking sensations he was also experiencing difficulty with his speech becoming slurred. Patient was also noted to have some facial paralysis with dysarthria and dysphagia. This is clearly a very new onset of multiple neurological symptoms, patient had no diplopia. Hence there was a major concern that the patient may be experiencing acute myasthenic crisis. Acetylcholine receptors antibodies are pending MRI is pending patient was transferred to [facility] and admitted to the ICU started on IVIG, and pyridostigmine. Over the last 24 hours, patient had minimal improvement. Patient was seen by neurology on consultation, and the recommendation was to start IVIG, neostigmine, and awaiting further diagnostic workup. I was planning to order a CT of the chest to rule out thymoma, however patient told me that he may have had already a CT of the chest at [facility] were in he presented initially to the ER prior to transfer. After evaluating the patient, I recommended close monitoring of his spirometry, bedside PFT was ordered, and he will have nif evaluation every 4 hours. A nasogastric tube was placed yesterday, and the patient was experiencing significant amount of bilious drainage from the nasogastric tube. KUB showed nonspecific bowel gas pattern. As I was dictating this note, the reports of his MRI came back showing no evidence of infarct, mild diffuse cerebral atrophy, no suspicious enhancement noted. Labs showed relatively normal CBC and a relatively normal electrolytes. CT of the chest showed extensive secretions and debris plugging the left mainstem bronchus extending throughout the left lower lobe bronchi. Atelectasis of basilar segments of the left lower lobe noted. Patient may require [facility] hoscopic evaluation. No evidence of thymoma. Patient was reevaluated today on 01/19/2019, patient deteriorated late last night, and his negative inspiratory force was getting worse, patient was desat urating, and he was requiring higher FiO2. I was notified about the condition by the nurse, and I recommended immediate intubation. Patient was intubated uneventfully by [employer]. Presently on mechanical ventilation. He is now on assist control rate of 16, tidal volume of 400, FiO2 of 40%, and PEEP of 5. ABG showed a pO2 of 163 pCO2 of 39 pH of 7.42. ABG showed a pO2 of 163 pCO2 of 39 pH of 7.42, hence his FiO2 was cut down from 50% to 40%. Electrolytes were reviewed potassium is a bit low at 3.4. Being corrected as per protocol. Chest x-ray this morning showed minimal left basilar atelectasis, questionable infiltrate in the left lower lobe, hence his Zosyn was started on this patient. Patient has a nasogastric tube in place, and plan to start the nutritional support/enteral feeding. He was seen by the neurologist today, and he was considering lumbar puncture, in the meantime I have discussed the patient's condition with the admitting physician, and we are inclined to consider transferring the patient to a tertiary care center. So far we do not have a firm diagnosis of myasthenia gravis, possibility of Guillain-Ashraf and the possibility of botulism are still in the differential. If this is truly Guillain-Ashraf, patient would be better off in a tertiary care center. In the meantime patient is still on IVIG for presumptive myasthenia, and he is on pyridostigmine. Estimated creatinine receptors are still pending. Lumbar puncture hasn't been performed yet. Family is at bedside, and they were updated on his condition Objective - Vital Signs Vital signs: Vital Signs Temp 97.6 F 01/19/19 12:00 Pulse 54 L 01/19/19 12:00 Resp 16 01/19/19 12:00 BP 97/56 01/19/19 12:00 Pulse Ox 100 01/19/19 12:00 Intake & Output 01/18/19 01/19/19 01/19/19 18:59 06:59 18:59 Intake Total 5572.099 7320.864 935.786 Output Total 650 1130 824 Balance 455.668 1012.864 111.786 Weight 89 kg 89 kg Intake: IV 1250 3425 750 Immune Globulin ( 300 Gammagard) 5 gm In Empty Bag 1 bag @ 50 mls/hr IV Q1H [facility] Rx#:[id number] Magnesium Sulfate-D5w Pmx 200 1 gm In Dextrose/Water 1 100ml.bag @ 100 mls/hr IVPB Q1H [facility] Rx#: [id number] Sodium Chloride 0.9% 1, 375 1125 750 000 ml @ 125 mls/hr IV . Q8H [facility] Rx#:[id number] Sodium Chloride 0.9% 1, 675 000 ml @ 75 mls/hr IV . [id number] [facility] Rx#:[id number] Sodium Chloride 0.9% 2, 2000 000 ml @ 999 mls/hr IV . Q2H1M [facility] Rx#:[id number] Intake, IV Titration 0.833 251.864 185.786 Amount Immune Globulin ( 0.833 192.5 Gammagard) 5 gm In Empty Bag 1 bag @ 50 mls/hr IV Q1H [facility] Rx#:[id number] Magnesium Sulfate-D5w Pmx 100 1 gm In Dextrose/Water 1 100ml.bag @ 100 mls/hr IVPB Q1H [facility] Rx#: [id number] Norepinephrine 4 mg In 6.53 Sodium Chloride 0.9% 250 ml @ 0.05 MCG/KG/MIN 16. 326 mls/hr IV .[id number] [facility] Rx#:[id number] Propofol 1,000 mg In 52.834 85.786 Empty Bag 1 bag @ Titrate IV .Q0M [facility] Rx#: [id number] Output: Gastric Drainage 700 Urine 650 430 824 Other: Voiding Method Urinal Indwelling Catheter Indwelling Catheter ABP, PAP, CO, CI - Last Documented Arterial Blood Pressure 108/68 - Exam Physical Exam: Revealed a 73-year-old white male, on mechanical ventilation, endotracheal tube and orogastric tube are intact. Patient is on propofol, sedated, Head: Atraumatic, normocephalic. evidence of ptosis bilaterally HEENT:[Neck is supple.] [No neck masses.] [No thyromegaly.] [No JVD.] Chest: [Clear breath sound bilaterally, no crackles or rhonchi or wheezes. Symmetrical chest expansion. Cardiac Exam: [Normal S1 and S2, no S3 gallop, no murmur.] Abdomen: [Soft, nontender, no megaly, no rebound, no guarding, normal bowel sounds.] Extremities: [No clubbing, no edema, no cyanosis.] Neurological Exam: Cannot be assessed, patient is presently sedated and mechanically ventilated. Psychiatric: Cannot be assessed. Skin: No rashes. - Labs CBC & Chem 7: 01/19/19 04:30 01/19/19 04:30 Labs: Abnormal Lab Results - Last 24 Hours (Table) 01/18/19 01/19/19 01/19/19 Range/Units 14:14 00:15 00:16 RBC (4.30-5.90) m/uL Hgb (13.0-17.5) gm/dL Hct (39.0-53.0) % MCV (80.0-100.0) fL Neutrophils # (1.3-7.7) k/uL Lymphocytes # (1.0-4.8) k/uL ABG pH 7.46 H (7.35-7.45) ABG pO2 61 L 353 H (83-108) mmHg ABG HCO3 28 H (21-25) mmol/L ABG Total CO2 29 H 26 H (19-24) mmol/L ABG O2 Saturation 92.5 L 100.0 H (94-97) % Potassium (3.5-5.1) mmol/L Chloride (98-107) mmol/L Creatinine (0.66-1.25) mg/dL Calcium (8.4-10.2) mg/dL Ur Specific [place] 1.037 H (1.001-1.035) Urine Protein 1+ H (Negative) Urine Ketones 3+ H (Negative) Urine Blood Small H (Negative) Urine RBC 11 H (0-5) /hpf Urine Mucus Rare H (None) /hpf 01/19/19 01/19/19 01/19/19 Range/Units 04:30 04:30 08:15 RBC 3.23 L (4.30-5.90) m/uL Hgb 11.0 L (13.0-17.5) gm/dL Hct 33.3 L (39.0-53.0) % MCV 103.2 H (80.0-100.0) fL Neutrophils # 7.9 H (1.3-7.7) k/uL Lymphocytes # 0.8 L (1.0-4.8) k/uL ABG pH (7.35-7.45) ABG pO2 163 H (83-108) mmHg ABG HCO3 (21-25) mmol/L ABG Total CO2 26 H (19-24) mmol/L ABG O2 Saturation 99.5 H (94-97) % Potassium 3.4 L (3.5-5.1) mmol/L Chloride 109 H (98-107) mmol/L Creatinine 0.63 L (0.66-1.25) mg/dL Calcium 7.4 L (8.4-10.2) mg/dL Ur Specific [place] (1.001-1.035) Urine Protein (Negative) Urine Ketones (Negative) Urine Blood (Negative) Urine RBC (0-5) /hpf Urine Mucus (None) /hpf Microbiology - Last 24 Hours (Table) 01/18/19 23:17 Gram Stain - Preliminary Sputum Sputum Culture - Preliminary Assessment and Plan Assessment: Impression: Acute dysphagia, dysarthria, possible acute myasthenia gravis, differential diagnoses also includes Guillain-Ashraf syndrome, also includes botulism. Patient's condition deteriorated last night, required intubation and mechanical ventilation. Acute hypoxic respiratory failure secondary to above. Left lower lobe atelectasis, possibility of infiltrate is not entirely ruled out, hence will start the patient on Zosyn empirically. Recommendation: Continue present treatment plan including mechanical ventilation, nutritional support, antibiotics, IV Ig, awaiting spinal tap to be done by neurology, in the meantime transfer plans are in progress to possibly transfer the patient to a tertiary care center. Prognosis remains guarded, family was updated on his condition, will follow. Critical care time is 40 minutes. Time with Patient: Greater than 30
[2019-01-19] MEDS ORDERED: PIPERACILLIN-TAZOBACTAM 3.375 GM in SODIUM CHLORIDE 0.9% 100 ML IVPB SCH (16:00)
[2019-01-19 16:27] VITALS: TEMP 97.5
[2019-01-19] MEDS ORDERED: SODIUM CHLORIDE 0.9% 1,000 ML IV ONE (16:59)
[2019-01-19] MEDS ORDERED: IMMUNE GLOBULIN (GAMMAGARD) 30 GM in EMPTY BAG 1 BAG IV ONE (18:00)
[2019-01-19 18:25] LABS: Protein, Total 5.7 g/dL (6.2-8.2)
[2019-01-19 21:16] VITALS: PULSE 47
[2019-01-19 22:33] VITALS: BP 126/66; RESP 17
[2019-01-20] MEDS ORDERED: IMMUNE GLOBULIN (GAMMAGARD) 5 GM in EMPTY BAG 1 BAG IV SCH (18:00)
[2019-01-20] MEDS ORDERED: IMMUNE GLOBULIN (GAMMAGARD) 30 GM in EMPTY BAG 1 BAG IV ONE (18:00)
[2019-01-21] MEDS ORDERED: IMMUNE GLOBULIN (GAMMAGARD) 5 GM in EMPTY BAG 1 BAG IV SCH (18:00)
[2019-01-21] MEDS ORDERED: IMMUNE GLOBULIN (GAMMAGARD) 30 GM in EMPTY BAG 1 BAG IV ONE (18:00)
[2019-01-23 09:26] LABS: Gamma Globulin 1.83 g/dL (0.70-1.50)
[2019-01-23 13:01] LABS: Lyme IgG/IgM 0.22 Index
== END 2019-01-19 22:02 | disposition short-term general hospital (02) | DRG 56 ==
LOC: EC 13:00 → 3SCARD 13:24 → INTOOBSV 13:24 → 3SCARD 14:11 → OBSVTOIN 17:04 → 2SICU 17:23
PROVIDERS: ADMIT Internal Medicine Interventional Cardiology; ATTEND Internal Medicine Interventional Cardiology
PROC: 4A023N7 Measurement of Cardiac Sampling and Pressure, Left Heart, Percutaneous Approach (ICD-10-PCS; 2019-01-17)
PROC: B2111ZZ Fluoroscopy of Multiple Coronary Arteries using Low Osmolar Contrast (ICD-10-PCS; 2019-01-17)
PROC: 0D9670Z Drainage of Stomach with Drainage Device, Via Natural or Artificial Opening (ICD-10-PCS; principal; 2019-01-17 13:20)
PROC: 0BH17EZ Insertion of Endotracheal Airway into Trachea, Via Natural or Artificial Opening (ICD-10-PCS; 2019-01-18)
PROC: 5A1935Z Respiratory Ventilation, Less than 24 Consecutive Hours (ICD-10-PCS; 2019-01-18)
PROC: 0CJS8ZZ Inspection of Larynx, Via Natural or Artificial Opening Endoscopic (ICD-10-PCS; 2019-01-18)
PROC: 3E0G76Z Introduction of Nutritional Substance into Upper GI, Via Natural or Artificial Opening (ICD-10-PCS; 2019-01-19)
PROC: 30233S1 Transfusion of Nonautologous Globulin into Peripheral Vein, Percutaneous Approach (ICD-10-PCS; 2019-01-19)
DX: G70.01 Myasthenia gravis with (acute) exacerbation (principal); J96.01 Acute respiratory failure with hypoxia; G12.22 Progressive bulbar palsy; J98.11 Atelectasis; T17.590A Other foreign object in bronchus causing asphyxiation, initial encounter; G61.0 Guillain-Barre syndrome; A05.1 Botulism food poisoning; Z99.11 Dependence on respirator [ventilator] status; I27.20 Pulmonary hypertension, unspecified; R13.10 Dysphagia, unspecified; I11.9 Hypertensive heart disease without heart failure; R29.810 Facial weakness; H53.2 Diplopia; M19.90 Unspecified osteoarthritis, unspecified site; R07.9 Chest pain, unspecified; R94.31 Abnormal electrocardiogram [ECG] [EKG]; R47.1 Dysarthria and anarthria; E78.5 Hyperlipidemia, unspecified; Z87.820 Personal history of traumatic brain injury; Z87.11 Personal history of peptic ulcer disease; Z87.891 Personal history of nicotine dependence; Z79.899 Other long term (current) drug therapy; Z91.030 Bee allergy status; Z82.49 Family history of ischemic heart disease and other diseases of the circulatory system
CPT/HCPCS: 36600; 70450; 70544; 70553; 71045; 71260; 74018; 74230; 80048; 80053; 81001; 82784; 82805; 83519; 83735; 84100; 84165; 84443; 85025; 86038; 86235; 86334; 86618; 87070; 87205; 93005; 93306; 93458; 94002; 94003; 99285